=== PATIENT | male | born 1965 ===

== ENCOUNTER 2018-03-11 11:22 | Inpatient (IN) | payer OTHER ==
[2018-03-11] MEDS ORDERED: Sodium Chloride 0.9% 1,000 ML IV STA (12:43)
[2018-03-11 13:23] LABS: BASO % 0.4 % (0.0-2.0); EOS % 0.2 % (0.0-4.0); HEMOGLOBIN 15.5 g/dL (12.0-18.0); LYMPH # 1.3 K/uL (1.0-4.3); LYMPH % 22.2 % (20.0-40.0); MEAN CELL VOLUME 81.4 fl (80.0-94.0); MEAN CORPUSCULAR HEMOGLOBIN 27.1 pg (27.0-31.0); MEAN CORPUSCULAR HGB CONC 33.3 g/dL (33.0-37.0); MEAN PLATELET VOLUME 7.4 fl (7.2-11.7); MONO # 0.3 K/uL (0.0-0.8); MONO % 5.1 % (0.0-10.0); NEUT # 4.1 K/uL (1.8-7.0); NEUT % 72.1 % (50.0-75.0); NRBC % 0.3 % (0.0-0.0); RBC 5.71 Mil/uL (4.40-5.90); RED CELL DISTRIBUTION WIDTH 15.2 % (11.5-14.5); WHITE BLOOD COUNT 5.7 K/uL (4.8-10.8)
[2018-03-11] MEDS ORDERED: Famotidine 40 MG/5 ML PO STA (13:23)
[2018-03-11 13:28] LABS: ALBUMIN 4.8 g/dL (3.5-5.0); ALT/SGPT 47 U/L (21-72); AST/SGOT 65 U/L (17-59); BLOOD UREA NITROGEN 10 mg/dl (9-20); CALCIUM 8.9 mg/dL (8.4-10.2); GFR AFRICAN-AMERICAN > 60; GFR NON-AFRICAN AMERICAN > 60; LIPASE 120 U/L (23-300)
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
[2018-03-11 20:07] LABS: URINE BACTERIA RARE (<OCC); URINE BILIRUBIN NEGATIVE (NEGATIVE); URINE BLOOD NEGATIVE (NEGATIVE); URINE CLARITY SLIGHTY-CLOUDY (Clear); URINE COLOR YELLOW (YELLOW); URINE GLUCOSE (UA) NEG (Normal); URINE HYALINE CAST 0-2 /hpf (0-2); URINE LEUKOCYTE ESTERASE NEG Leu/uL (Negative); URINE PROTEIN 100 mg/dL (NEGATIVE)
[2018-03-11 20:20] LABS: BARBITURATES, UR NEGATIVE (NEGATIVE); BENZODIAZEPINES, UR POSITIVE (NEGATIVE); OPIATES, UR NEGATIVE (NEGATIVE); PHENCYCLIDINE, UR NEGATIVE (NEGATIVE)
[2018-03-11] MEDS ORDERED: Multivitamin (MVI) 10 ML, Thiamine 100 MG, Folic Acid 1 MG in Dextrose 5%/0.45% NS 1,00... IV ONE (22:23)
[2018-03-11] MEDS ORDERED: Thiamine 100 mg/ml Inj IV ONE (22:28)
[2018-03-12] MEDS ORDERED: TRAZODONE HCL PO SCH (09:00)
[2018-03-12] MEDS: Thiamine 100 mg/ml Inj IV SCH (09:21)
[2018-03-12] MEDS: Enoxaparin 40 mg Syringe SC SCH (11:39)
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
--- NOTE | 2018-03-13 04:20 | PN ---
DATE: 03/12/2018 SUBJECTIVE: The patient was seen today on 03/12/2018 and is not on any cardiopulmonary disease but the patient still has tachycardia, and he is having tremors. PHYSICAL EXAMINATION: VITAL SIGNS: Blood pressure 150/92, temperature 98.5, respiratory rate 17, and pulse 104. HEENT: Pupils are equal and reactive to light. Normal appearing mucosa of the conjunctiva, oropharyngeal and nasal membrane mucosa. NECK: Supple. No JVD. No carotid bruits. No lymph node. No thyromegaly. CHEST AND LUNGS: Bilateral symmetrical expansion. Good air exchange. No rales. No rhonchi. CARDIOVASCULAR SYSTEM: PMI not localized. S1 and S2. No additional sounds. ABDOMEN: Normoactive bowel sounds. No tenderness. No organomegaly. No masses. EXTREMITIES: No cyanosis. No clubbing. Moves all extremities equally. ASSESSMENT: 1. Alcohol withdrawal with tremors and agitation. 2. History of alcohol abuse. PLAN: We will continue the Ativan, IV fluid, multivitamin, and thiamine. DT precaution and seizure precaution. Continue current medications as per NOV. Danny Mccallum MD
[2018-03-13] MEDS: Enoxaparin 40 mg Syringe SC SCH (08:55)
[2018-03-13] MEDS: Thiamine 100 mg/ml Inj IV SCH (08:57)
[2018-03-13] MEDS: Oxycodone/Acetaminophen 5/325 mg Tab PO PRN ×3 (10:01→23:20)
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
[2018-03-14] MEDS: Oxycodone/Acetaminophen 5/325 mg Tab PO PRN ×2 (08:47→19:08)
[2018-03-14] MEDS: Enoxaparin 40 mg Syringe SC SCH (08:48)
[2018-03-14] MEDS: Thiamine 100 mg/ml Inj IV SCH (08:50)
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
[2018-03-15] MEDS: Oxycodone/Acetaminophen 5/325 mg Tab PO PRN ×5 (00:29→20:52)
--- NOTE | 2018-03-15 00:36 | PN ---
DATE: 03/14/2018 SUBJECTIVE: The patient is seen today 03/14/2018. He is not in any pulmonary cardiopulmonary distress, and the patient was not in need for Ativan every 2 hours. The patient also has poor IV access. PHYSICAL EXAMINATION: VITAL SIGNS: Blood pressure 136/85, temperature 98.8, respiratory rate 18, and pulse 82. HEENT: Pupils equal and reactive to light. Normal appearing mucosa of the conjunctiva, oropharyngeal, and nasal membrane mucosa. NECK: Supple. No JVD. No carotid bruits. No lymph nodes. No thyromegaly. CHEST AND LUNGS: Bilateral symmetrical expansion. Good air exchange. No rales. No rhonchi. CARDIOVASCULAR: PMI not localized. S1 and S2. No additional sounds. ABDOMEN: Normoactive bowel sounds. No tenderness. No organomegaly. No masses. EXTREMITIES: No cyanosis. No clubbing. No edema. COMMISSION SPECIALIST: Alert, awake, and oriented x2; , .: 1. Alcohol withdrawal with impending delirium tremens. 2. History of alcohol abuse. PLAN: Continue current medications and change Ativan to every 4 hours and continue one-to-one observation. Danny Mccallum MD [facility]
[2018-03-15] MEDS: Enoxaparin 40 mg Syringe SC SCH (09:15)
[2018-03-15] MEDS: Thiamine 100 mg/ml Inj IV SCH (09:15)
[2018-03-15] MEDS: Bacitracin OINT 15GM TOP SCH (16:33)
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
[2018-03-15 18:23] LABS: BASO % 0.3 % (0.0-2.0); EOS # 0.1 K/uL (0.0-0.7); EOS % 1.7 % (0.0-4.0); HEMOGLOBIN 13.8 g/dL (12.0-18.0); LYMPH # 1.1 K/uL (1.0-4.3); LYMPH % 24.3 % (20.0-40.0); MEAN CELL VOLUME 81.8 fl (80.0-94.0); MEAN CORPUSCULAR HEMOGLOBIN 27.2 pg (27.0-31.0); MEAN CORPUSCULAR HGB CONC 33.2 g/dL (33.0-37.0); MEAN PLATELET VOLUME 7.9 fl (7.2-11.7); MONO # 0.5 K/uL (0.0-0.8); MONO % 10.7 % (0.0-10.0); NEUT # 2.9 K/uL (1.8-7.0); NRBC % 0.1 % (0.0-0.0); RBC 5.1 Mil/uL (4.40-5.90); RED CELL DISTRIBUTION WIDTH 15.5 % (11.5-14.5); WHITE BLOOD COUNT 4.6 K/uL (4.8-10.8)
[2018-03-15 18:52] LABS: BLOOD UREA NITROGEN 15 mg/dl (9-20); CALCIUM 9.2 mg/dL (8.4-10.2); GFR AFRICAN-AMERICAN > 60; GFR NON-AFRICAN AMERICAN > 60
[2018-03-16] MEDS: Oxycodone/Acetaminophen 5/325 mg Tab PO PRN ×5 (01:10→22:13)
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
--- NOTE | 2018-03-16 08:36 | CP.PCM.PN ---
Subjective - Date & Time of Evaluation Date of Evaluation: 03/16/18 Time of Evaluation: 08:33 - Subjective Subjective: Podiatry progress note for attending, Dr. Chang, 52 y/o male seen and evaluated at bedside. Patient is resting comfortably and in NAD. Patient dressing was clean, dry and intact. Patient states he did not receive the x-rays yesterday. Patient still complains of pain and states he is unable to ambulate with the left foot. Patient denies N/F/V/SOB/chills Objective - Vital Signs/Intake and Output Vital Signs (last 24 hours): Temp Pulse Resp BP Pulse Ox 98.2 F 71 20 116/81 97 03/16/18 08:00 03/16/18 08:00 03/16/18 08:00 03/16/18 08:00 03/16/18 08:00 - Medications Medications: Current Medications Bacitracin (Bacitracin Oint) 1 applic TOP BID [facility] Last Admin: 03/15/18 16:33 Dose: 1 applic Collagenase (Santyl) 1 applic TOP DAILY [facility] Famotidine (Pepcid) 20 mg PO BID [facility] Last Admin: 03/15/18 16:33 Dose: 20 mg Fluoxetine HCl (Prozac) 20 mg PO DAILY [facility] Last Admin: 03/15/18 09:15 Dose: 20 mg Gabapentin (Neurontin) 100 mg PO BID PRN PRN Reason: Pain, Mild (1-3) Last Admin: 03/15/18 16:33 Dose: 100 mg Lorazepam (Ativan) 2 mg PO Q1 PRN PRN Reason: Agitation Lorazepam (Ativan) 2 mg PO Q4 [facility] Last Admin: 03/16/18 06:01 Dose: 2 mg Ondansetron HCl (Zofran Inj) 4 mg IVP Q6 PRN PRN Reason: Nausea/Vomiting Oxycodone/Acetaminophen (Percocet 5/325 Mg Tab) 1 tab PO Q4 PRN PRN Reason: Pain, moderate (4-7) Stop: 03/16/18 09:52 Last Admin: 03/16/18 06:01 Dose: 1 tab Prazosin HCl (Minipress) 1 mg PO DAILY [facility] Last Admin: 03/15/18 09:15 Dose: 1 mg Thiamine HCl (Vitamin B1 Inj) 100 mg IV DAILY [facility] Last Admin: 03/15/18 09:15 Dose: 100 mg Trazodone HCl (Desyrel) 150 mg PO HS [facility] Last Admin: 03/15/18 22:48 Dose: 150 mg - Labs Labs: 03/15/18 17:25 03/15/18 17:25 - Constitutional Appears: Well, Non-toxic, No Acute Distress - Head Exam Head Exam: ATRAUMATIC, NORMOCEPHALIC - Extremities Exam Additional comments: Bilateral Lower Extremity Exam: VASC: DP and PT 2/4 bilaterally, CFT less than 3 seconds X 10, TG warm to cool proximal to distal, non-pitting edema present to the lateral aspect of the left leg at the lateral malleolus NEURO: Epicritic and Protective sensation intact DERM: Left Lateral malleolar circular superficial wound measuring 1 cm X 1 cm, 80% fibrotic, 20% granular, no malodor, no fluctuance, no tunneling, no probe to bone, no tracking or undermining, no drainage, hyper-granular epithelialized periwound skin, mild increase in temperature noted to the left ankle MSK: severe diffuse pain on palpation to the lateral ankle, patient guarding with range of motion, patient unable to wiggle toes - Neurological Exam Neurological Exam: Alert, Awake, Oriented x3 - Psychiatric Exam Psychiatric exam: Normal Affect, Normal Mood Assessment and Plan - Assessment and Plan (Free Text) Assessment: 52 y/o male seen and evaluated for superficial wound and pain to left lateral ankle Plan: Patient seen and evaluated Plan discussed with attending Dr. Chang Chart, labs and vitals reviewed- Afebrile, absent leukocytosis Foot and Ankle x-rays of the Left Lower Extremity- Pending results Wound Culture- Pending results Wound dressed with DSD and JEFF Podiatry will continue to follow patient while in [place] -Debbie Mccoy, PGY1
[2018-03-16] MEDS: Bacitracin OINT 15GM TOP SCH (10:11)
[2018-03-16] MEDS: Thiamine 100 mg/ml Inj IV SCH (10:13)
[2018-03-16] MEDS: Santyl Collagenase OINTMENT TOP SCH (12:22)
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
[2018-03-16] MEDS: Enoxaparin 40 mg Syringe SC SCH (13:02)
[2018-03-16] MEDS ORDERED: Lidocaine 2% Jelly (Uro-Jet) TOP ONE (14:03)
[2018-03-16] MEDS ORDERED: Lidocaine 2% GEL TOP ONE (14:30)
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
[2018-03-17] MEDS: Oxycodone/Acetaminophen 5/325 mg Tab PO PRN ×3 (02:41→20:19)
--- NOTE | 2018-03-17 09:20 | CP.PCM.PN ---
Subjective - Date & Time of Evaluation Date of Evaluation: 03/17/18 Time of Evaluation: 09:18 - Subjective Subjective: Podiatry progress note for attending, Dr. Chang, 52 y/o male seen and evaluated at bedside. Patient is resting comfortably and in NAD. Patient dressing was clean, dry and intact. Patient states his pain has mildly improved. Patient denies N/F/V/SOB/chills Objective - Vital Signs/Intake and Output Vital Signs (last 24 hours): Temp Pulse Resp BP Pulse Ox 98.2 F 70 18 130/84 99 03/17/18 08:00 03/17/18 08:00 03/17/18 08:00 03/17/18 08:00 03/17/18 08:00 - Medications Medications: Current Medications Collagenase (Santyl) 1 applic TOP DAILY [facility] Last Admin: 03/16/18 12:22 Dose: 1 applic Enoxaparin Sodium (Lovenox) 40 mg SC DAILY [facility] PRN Reason: Protocol Last Admin: 03/16/18 13:02 Dose: 40 mg Famotidine (Pepcid) 20 mg PO BID [facility] Last Admin: 03/16/18 18:14 Dose: 20 mg Fluoxetine HCl (Prozac) 20 mg PO DAILY [facility] Last Admin: 03/16/18 10:13 Dose: 20 mg Gabapentin (Neurontin) 100 mg PO BID PRN PRN Reason: Pain, Mild (1-3) Last Admin: 03/16/18 14:19 Dose: 100 mg Lorazepam (Ativan) 2 mg PO Q1 PRN PRN Reason: Agitation Lorazepam (Ativan) 2 mg PO Q4 [facility] Last Admin: 03/17/18 05:12 Dose: 2 mg Ondansetron HCl (Zofran Inj) 4 mg IVP Q6 PRN PRN Reason: Nausea/Vomiting Oxycodone/Acetaminophen (Percocet 5/325 Mg Tab) 1 tab PO Q4 PRN PRN Reason: Pain, moderate (4-7) Stop: 03/19/18 12:48 Last Admin: 03/17/18 02:41 Dose: 1 tab Prazosin HCl (Minipress) 1 mg PO DAILY [facility] Last Admin: 03/16/18 10:12 Dose: 1 mg Thiamine HCl (Vitamin B1 Inj) 100 mg IV DAILY [facility] Last Admin: 03/16/18 10:13 Dose: 100 mg Trazodone HCl (Desyrel) 150 mg PO HS [facility] Last Admin: 03/16/18 21:11 Dose: 150 mg - Labs Labs: 03/15/18 17:25 03/15/18 17:25 - Constitutional Appears: Well, Non-toxic, No Acute Distress - Head Exam Head Exam: ATRAUMATIC, NORMOCEPHALIC - Extremities Exam Additional comments: Left Lower Extremity Exam: VASC: DP and PT 2/4, CFT less than 3 seconds X 5, TG warm to cool proximal to distal, improving non-pitting edema present to the lateral aspect of the left leg at the lateral malleolus NEURO: Epicritic and Protective sensation intact DERM: Left Lateral malleolar circular superficial wound measuring 1 cm X 1 cm, 70% fibrotic, 30% granular, no malodor, no fluctuance, no tunneling, no probe to bone, no tracking or undermining, no drainage, hyper-granular epithelialized periwound skin, minimal increase in temperature noted to the left ankle MSK: mild pain on palpation to the lateral ankle, patient guarding with range of motion - Neurological Exam Neurological Exam: Alert, Awake, Oriented x3 - Psychiatric Exam Psychiatric exam: Normal Affect, Normal Mood Assessment and Plan - Assessment and Plan (Free Text) Assessment: 52 y/o male seen and evaluated for superficial wound and pain to left lateral ankle Plan: Patient seen and evaluated Plan discussed with attending Dr. Chang Chart, labs and vitals reviewed- Afebrile, absent leukocytosis Foot and Ankle x-rays of the Left Lower Extremity- no fracture or dislocations notes Wound Culture- Pending results Lidocaine Gel applied to the left malleolus for pain Wound dressed with Santly, DSD and JEFF Podiatry will continue to follow patient while in house
[2018-03-17] MEDS: Thiamine 100 mg/ml Inj IV SCH (09:41)
[2018-03-17] MEDS: Santyl Collagenase OINTMENT TOP SCH (09:42)
[2018-03-17] MEDS: Enoxaparin 40 mg Syringe SC SCH (09:43)
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
--- NOTE | 2018-03-17 14:30 | CT ---
PROCEDURE: CT HEAD WITHOUT CONTRAST. HISTORY: unsteady gait COMPARISON: None available. TECHNIQUE: Axial computed tomography images were obtained through the head/brain without intravenous contrast. Limited study due to artifact from patient motion. Radiation dose: Total exam DLP = 1264.93 mGy-cm. This CT exam was performed using one or more of the following dose reduction techniques: Automated exposure control, adjustment of the mA and/or kV according to patient size, and/or use of iterative reconstruction technique. FINDINGS: HEMORRHAGE: No acute hemorrhage. BRAIN: There is a curvilinear fluid collection along the inner table the calvarium on the left with maximum dimension of approximately 1.2 centimeters. This demonstrates mild mass effect on the left cerebral hemisphere. There is mild to moderate effacement of the sulcal spaces on the left. No layering high density material seen within this fluid collection to suggest acute hemorrhage. No atrophy or chronic microvascular ischemic changes. VENTRICLES: Mild effacement of the left ventricle. The left temporal horn appears slightly smaller than the right. CALVARIUM: Unremarkable. PARANASAL SINUSES: Unremarkable as visualized. No significant inflammatory changes. MASTOID AIR CELLS: Under pneumatization of the mastoid air cells right greater than left. OTHER FINDINGS: None. IMPRESSION: No CT evidence of acute intracranial hemorrhage or acute territorial infarct. Acute infarction may be CT occult within first 24 hours. If a focal deficit persists, consider followup CT or MRI for further evaluation. Findings consistent with chronic subdural hematoma along the inner table of the left calvarium of [id number] mass effect on the adjacent sulcal spaces and the left ventricle particularly the temporal horn. Other findings as above. Discussed with Dr Burns at approximately 2:20 p.m. on 03/17/2018.
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
--- NOTE | 2018-03-17 17:02 | PN ---
DATE: 03/17/2018 SUBJECTIVE: The patient is seen today 03/17/2018. He is not in any cardiopulmonary distress. PHYSICAL EXAMINATION: VITAL SIGNS: Blood pressure 139/88, temperature 97.8, respiratory rate 20, and pulse 60. HEENT: Pupils equal and reactive to light. Normal-appearing mucosa of the conjunctivae, oropharynx and nasal membrane mucosa. NECK: Supple. No JVD. No carotid bruits. No lymph nodes. No thyromegaly. CHEST AND LUNGS: Bilateral symmetrical expansion. Good air exchange. No rales. No rhonchi. CARDIOVASCULAR SYSTEM: PMI not localized. S1 and S2. No additional sounds. ABDOMEN: Normoactive bowel sounds. No tenderness. No organomegaly. No masses. EXTREMITIES: No cyanosis. No clubbing. No edema. DATABASE PROGRAMMER ANALYST: Alert, awake, and oriented x2, and the patient has tremors in both upper extremities and he is still on Ativan every 4 hours. ASSESSMENT: Alcohol withdrawal with impending delirium tremens. We will consult Neurology for the continued tremors. PLAN: Neurology consult for continuous tremors and unsteadiness and Follow Podiatry regarding the weightbearing and the Physical Therapy regarding the injury to the left ankle. The patient has stage 2 ulcer in the mid thoracic area as that was present on admission. The patient also has a closed wound on the right ankle that is being taken care of by Podiatry. Danny Mccallum MD MTDKwaku
[2018-03-18] MEDS: Oxycodone/Acetaminophen 5/325 mg Tab PO PRN ×4 (00:35→20:25)
[2018-03-18] MEDS ORDERED: Povidone Iodine Topical 10% Sol ONE (08:10)
--- NOTE | 2018-03-18 09:09 | CP.PCM.PN ---
Subjective - Date & Time of Evaluation Date of Evaluation: 03/18/18 Time of Evaluation: 09:07 - Subjective Subjective: Podiatry progress note for attending, Dr. Chang, 52 y/o male seen and evaluated at bedside with Dr. Chang. Patient is resting comfortably and in NAD. Patient's dressing was clean, dry and intact. Patient states his pain has improved, and patient is able to ambulate to and from the bathroom. Patient denies any trauma to his foot. Patient denies any new pedal complaints. Patient denies N/F/V/SOB/chills Objective - Vital Signs/Intake and Output Vital Signs (last 24 hours): Temp Pulse Resp BP Pulse Ox 97.9 F 79 20 133/83 100 03/18/18 08:00 03/18/18 08:00 03/18/18 08:00 03/18/18 08:00 03/18/18 08:00 - Medications Medications: Current Medications Collagenase (Santyl) 1 applic TOP DAILY [facility] Last Admin: 03/17/18 09:42 Dose: 1 applic Enoxaparin Sodium (Lovenox) 40 mg SC DAILY [facility] PRN Reason: Protocol Last Admin: 03/17/18 09:43 Dose: 40 mg Famotidine (Pepcid) 20 mg PO BID [facility] Last Admin: 03/17/18 17:44 Dose: 20 mg Fluoxetine HCl (Prozac) 20 mg PO DAILY [facility] Last Admin: 03/17/18 09:42 Dose: 20 mg Gabapentin (Neurontin) 100 mg PO BID PRN PRN Reason: Pain, Mild (1-3) Last Admin: 03/17/18 17:45 Dose: 100 mg Lorazepam (Ativan) 2 mg PO Q1 PRN PRN Reason: Agitation Lorazepam (Ativan) 2 mg PO Q4 [facility] Last Admin: 03/18/18 04:46 Dose: 2 mg Ondansetron HCl (Zofran Inj) 4 mg IVP Q6 PRN PRN Reason: Nausea/Vomiting Oxycodone/Acetaminophen (Percocet 5/325 Mg Tab) 1 tab PO Q4 PRN PRN Reason: Pain, moderate (4-7) Stop: 03/19/18 12:48 Last Admin: 03/18/18 00:35 Dose: 1 tab Prazosin HCl (Minipress) 1 mg PO DAILY [facility] Last Admin: 03/17/18 09:43 Dose: 1 mg Thiamine HCl (Vitamin B1 Inj) 100 mg IV DAILY [facility] Last Admin: 03/17/18 09:41 Dose: 100 mg Trazodone HCl (Desyrel) 150 mg PO HS [facility] Last Admin: 03/17/18 21:52 Dose: 150 mg - Labs Labs: 03/15/18 17:25 03/15/18 17:25 - Constitutional Appears: Well, Non-toxic, No Acute Distress - Head Exam Head Exam: ATRAUMATIC, NORMOCEPHALIC - Extremities Exam Additional comments: Left Lower Extremity Exam: VASC: DP and PT 2/4, CFT less than 3 seconds X 5, TG warm to cool proximal to distal, improving non-pitting edema present to the lateral aspect of the left leg at the lateral malleolus NEURO: Epicritic and Protective sensation intact DERM: Left Lateral malleolar circular superficial wound measuring 1 cm X 1 cm, 100% granular, no malodor, no fluctuance, no tunneling, no probe to bone, no tracking or undermining, no drainage, hyper-granular epithelialized periwound skin, minimal increase in temperature noted to the left ankle MSK: mild pain on palpation to the lateral ankle, patient able to perform range of motion exercises, however guarding due to pain - Neurological Exam Neurological Exam: Awake, Oriented x3 - Psychiatric Exam Psychiatric exam: Normal Affect, Normal Mood Assessment and Plan - Assessment and Plan (Free Text) Assessment: 52 y/o male seen and evaluated for superficial wound and pain to left lateral ankle Plan: Patient seen and evaluated with Dr. Chang Chart, labs and vitals reviewed- Afebrile, absent leukocytosis Foot and Ankle x-rays of the Left Lower Extremity- no fracture or dislocations notes Wound Culture- Coagulase Neg Staph Lidocaine Gel applied to the left malleolus for pain Wound dressed with Caro, DSKwaku and JEFF Podiatry will continue to follow patient while in house
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
[2018-03-18] MEDS: Enoxaparin 40 mg Syringe SC SCH (09:55)
[2018-03-18] MEDS: Thiamine 100 mg/ml Inj IV SCH (09:58)
[2018-03-18] MEDS: Santyl Collagenase OINTMENT TOP SCH (09:59)
--- NOTE | 2018-03-18 14:53 | PQF ---
PROVIDER RESPONSE TEXT: Thoracolumbar area, POA REVIEWER QUERY TEXT: Skin Ulcer Location and POA Status Skin ulcer pressure related stage 2 to the mid lower back is noted in the Medical Record by the photographer lithographic. Please specify the location and whether it was present on admission (POA )and the etiology of the ski n ulcer Location such as: -- Body site(s) involved -- Laterality (left, right, bilateral) -- Type/ Etiology of Ulcer -- Other, please specify The patient's Clinical Indicators include: The photographer lithographic has the following documentation on 03/12/18: "Asked to assess patient who presents to unit with Stage 2 pressure ulcer to mid lower back; per edith ent, he has been lying in bed for long periods of time due to depression. Recommending to apply hydro gel then cover with foam dressing to be done every other day." Query created by: Suzanne Purvis on 03/16/2018 6:57 AM Electronically signed by: Danny Mccallum MD 03/18/2018 2:50 PM
--- NOTE | 2018-03-18 15:31 | CP.PCM.PCO ---
Assessment & Plan - Assessment and Plan (Free Text) Assessment: Patient seen and examined VSS alert awake oriented less tremulous. Walking with physical therapy with rolling walker Patient seen by Neuro and Neurosurgery -as per Dr Parker, patient will need repeat head ct scan in 2 weeks. Stable for transfer to psych unit. Discussed with Dr Mccallum who agrees with plan. GI Arndt aware to make the transfer.
[2018-03-18 16:22] VITALS: RESP 16
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
[2018-03-18 20:10] VITALS: BP 132/77; PULSE 81; TEMP 97.9; O2SAT 98
--- NOTE | 2018-03-19 08:32 | CON ---
DATE: 03/18/2018 HISTORY OF PRESENT ILLNESS: This is a 52-year-old male who was admitted on 03/11/2018 with a history of alcohol abuse, came in complaining of abdominal pain and problem with left ankle and foot. He has significant problem with alcohol drinks at least one to two pints a day. He currently is going through delirium tremors, and he is actively asked to go to Psych and alcohol detox. Because of his prolonged tremors, a CT of the head was ordered. It demonstrated a small left convexity subdural hematoma, very chronic in nature. No apparent acute blood to my review. No shift . There is some mild mass effect on the cortex, however. At this point, he is fully awake, alert, oriented. I reviewed his medical history with him including family history, social history, review of systems. ALLERGIES: HE HAS NO ALLERGIES. MEDICATIONS: Listed on the chart. PHYSICAL EXAMINATION: GENERAL: He is currently again fully awake, alert, and oriented. HEENT: Pupils are equal. EOMs full. His face is symmetric. His tongue is midline. He has gag. He has corneals. NEUROLOGIC: He has excellent strength in all muscle groups. He does have tremors both at rest and on activity in both upper extremities. He has normal sensation. Normal reflexes. I did not get . He is wearing a look likes some sort of soft cast on his left foot. ASSESSMENT AND PLAN: At this time, the subdural was relatively small. It is at the margin of what would be reasonable to drain. We discussed the alternatives of taking to the operating room and draining it now or observing it perhaps it will resolve with time. He is very interested in going to detox now, and he wishes not to have since he is intact. In light of that, we will observe him, get a repeat CAT scan in two weeks and compare it. If there are any significant changes, then we will adjust our plan accordingly. He was instructed to follow up with me after his discharge from alcohol detox and Psych. Saman Parker MD
== END 2018-03-18 21:20 | DRG 750 ==
LOC: H.ER 11:22 → H.ERHOLD 17:52 → H.TEL 20:37 → OBSVTOIN 03-13 11:56
PROVIDERS: ADMIT Internal Medicine; ATTEND Internal Medicine
DX: F10.231 Alcohol dependence with withdrawal delirium (principal); L89.102 Pressure ulcer of unspecified part of back, stage 2; F10.221 Alcohol dependence with intoxication delirium; Y90.8 Blood alcohol level of 240 mg/100 ml or more; F43.10 Post-traumatic stress disorder, unspecified; F32.9 Major depressive disorder, single episode, unspecified; S06.5X9S Traumatic subdural hemorrhage with loss of consciousness of unspecified duration, sequela; S99 Other and unspecified injuries of ankle and foot; Z87.828 Personal history of other (healed) physical injury and trauma; V29.9XXS Motorcycle rider (driver) (passenger) injured in unspecified traffic accident, sequela

== ENCOUNTER 2018-03-18 22:09 | Inpatient (IN) | payer MEDICAID ==
[2018-03-18 22:13] VITALS: BMI 27.3
[2018-03-18] MEDS ORDERED: Magnesium Hydroxide Susp 30 ml UD PO PRN (23:24)
[2018-03-18] MEDS ORDERED: Alum-Mag Hydrox-Simethicone Susp (30 mL) PO PRN (23:24)
[2018-03-18] MEDS ORDERED: DiphenhydrAMINE 50 mg/ml Inj IM PRN (23:24)
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
--- NOTE | 2018-03-19 07:04 | CP.PCM.PN ---
Subjective - Date & Time of Evaluation Date of Evaluation: 03/19/18 Time of Evaluation: 07:02 - Subjective Subjective: Podiatry progress note for attending, Dr. Chang, Patient seen and evaluated bedside in the Psych unit. Patient states he is feeling much better, and is resting comfortably in bed. Patient denies any new complaints. Patient dressing clean, dry and intact. Patient denies F/V/N/SOB. Objective - Vital Signs/Intake and Output Vital Signs (last 24 hours): Temp Pulse Resp BP Pulse Ox 98.2 F 73 18 115/75 03/19/18 06:00 03/19/18 06:00 03/19/18 06:00 03/19/18 06:00 - Medications Medications: Current Medications Acetaminophen (Tylenol 325mg Tab) 650 mg PO Q4 PRN PRN Reason: Pain, moderate (4-7) Al Hydrox/Mg Hydrox/Simethicone (Maalox Plus 30 Ml) 30 ml PO Q4 PRN PRN Reason: Dyspepsia Diphenhydramine HCl (Benadryl) 50 mg IM Q6 PRN PRN Reason: Extrapyramidal S/S Unable PO Diphenhydramine HCl (Benadryl) 50 mg PO Q6 PRN PRN Reason: Extrapyramidal Symptoms Diphenhydramine HCl (Benadryl) 50 mg PO HS PRN PRN Reason: Sleep Last Admin: 03/19/18 01:47 Dose: 50 mg Folic Acid (Folic Acid) 1 mg PO DAILY YISEL Haloperidol (Haldol) 5 mg PO Q4 PRN PRN Reason: Agitation Haloperidol Lactate (Haldol) 5 mg IM Q4 PRN PRN Reason: Agitation, Unable to Take PO Lorazepam (Ativan) 1 mg IM Q8 PRN PRN Reason: Anxiety/Agitation,Unable PO Lorazepam (Ativan) 1 mg PO Q8 PRN PRN Reason: Anxiety/Agitation Last Admin: 03/19/18 00:19 Dose: 1 mg Magnesium Hydroxide (Milk Of Magnesia) 30 ml PO HS PRN PRN Reason: Constipation Multivitamins/Minerals (Therapeutic-M Tab) 1 tab PO DAILY YISEL Thiamine HCl (Vitamin B1 Tab) 100 mg PO DAILY YISEL - Constitutional Appears: Well, Non-toxic, No Acute Distress - Head Exam Head Exam: ATRAUMATIC, NORMOCEPHALIC - Extremities Exam Additional comments: Left Lower Extremity Exam VASC: DP and PT 2/4, CFT less than 3 seconds X 5, TG warm to warm, minimal edema noted to the lateral ankle NEURO: grossly intact DERM: 1 cm X 1 cm ulceration to the lateral malleolus with 100% granular base, healing skin noted gely-wound, no malodor, no drainage, no tunneling, no probe to bone, no tunneling, no tracking, no fluctuance MSK: pain on palpation to the lateral malleolus, pain with ankle joint range of motion - Neurological Exam Neurological Exam: Alert, Awake, Oriented x3 - Psychiatric Exam Psychiatric exam: Normal Affect, Normal Mood Assessment and Plan - Assessment and Plan (Free Text) Assessment: 52 y/o male seen and evaluted for ulceration to left lateral malleolus Plan: Patient seen and evaluated at bedside Plan discussed with attending, Dr. Chang Chart, labs and vitals reviewed Wound dressed with DSD, Lidocaine will be ordered for patient Patient is stable from podiatry standpoint Podiatry will continue to follow patient while in house
[2018-03-19] MEDS: Multivitamin With Minerals Tab PO SCH (08:48)
[2018-03-19] MEDS ORDERED: Lidocaine 2% GEL TOP ONE (09:10)
[2018-03-19] MEDS ORDERED: Oxycodone/Acetaminophen 5/325 mg Tab PO SCH (09:15)
[2018-03-19 09:16] LABS: BASO % 0.5 % (0.0-2.0); EOS # 0.1 K/uL (0.0-0.7); EOS % 2.5 % (0.0-4.0); HEMOGLOBIN 13.5 g/dL (12.0-18.0); LYMPH # 1.9 K/uL (1.0-4.3); LYMPH % 32.9 % (20.0-40.0); MEAN CELL VOLUME 82.6 fl (80.0-94.0); MEAN CORPUSCULAR HEMOGLOBIN 27.6 pg (27.0-31.0); MEAN CORPUSCULAR HGB CONC 33.4 g/dL (33.0-37.0); MEAN PLATELET VOLUME 7.6 fl (7.2-11.7); MONO # 0.9 K/uL (0.0-0.8); NEUT # 2.9 K/uL (1.8-7.0); NEUT % 49.1 % (50.0-75.0); NRBC % 0.9 % (0.0-0.0); RBC 4.88 Mil/uL (4.40-5.90); RED CELL DISTRIBUTION WIDTH 15.6 % (11.5-14.5); WHITE BLOOD COUNT 5.8 K/uL (4.8-10.8)
[2018-03-19 09:55] LABS: LDL CHOLESTEROL 61 mg/dL (0-129)
[2018-03-19 09:59] LABS: ALB/GLOB RATIO 1.2 (1.0-2.1); ALBUMIN 4.3 g/dL (3.5-5.0); ALT/SGPT 45 U/L (21-72); AST/SGOT 34 U/L (17-59); BILIRUBIN,DIRECT 0.3 mg/ml (0.0-0.4); BLOOD UREA NITROGEN 11 mg/dl (9-20); CALCIUM 9.2 mg/dL (8.4-10.2); GFR AFRICAN-AMERICAN > 60; GFR NON-AFRICAN AMERICAN > 60; HDL CHOLESTEROL 35 MG/DL (30-70); T4 11.1 ug/dl (5.5-11.0)
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
[2018-03-19] MEDS: Oxycodone/Acetaminophen 5/325 mg Tab PO SCH ×2 (16:08→21:20)
[2018-03-20] MEDS: Oxycodone/Acetaminophen 5/325 mg Tab PO SCH ×2 (04:32→10:10)
[2018-03-20] MEDS: Multivitamin With Minerals Tab PO SCH (08:10)
--- NOTE | 2018-03-20 09:31 | PCM.PYCHPN ---
Psychiatric Progress Note - Psychiatric Progress Note Patient seen today, length of contact: Patient evaluated, case discussed with team, chart reviewed Patient Chief Complaint: "I'm depressed." Problems Identified/Issues Discussed: Patient continues to report feeling depressed and anxious. He states that he has difficulty sleeping at night. He does not want to take Trazodone anymore because he does not believe it is effective. We discussed stopping Trazodone and starting Remeron 15 mg PO HS. No AH/VH/SI/HI. Medication Change: Yes (Stop Trazodone, Start Remeron 15 mg PO HS) Medical Record Reviewed: Yes Consults ordered or reviewed: Medicine consult, PT Mental Status Examination - Cognitive Function Orientation: Person, Place, Situation, Time Memory: Intact Attention: WNL Concentration: WNL Association: WNL Fund of Knowledge: WN Decription of patient's judgement and insights: Improving I/J - Mood Mood: Depressed - Affect Affect: Constricted, Depressed - Speech Speech: Appropriate - Formal Thought Process Formal Thought Process: No Impairment Psychotic Thoughts and Behaviors: NO AH/VH/paranoia/delusions - Suicidal Ideation Suicidal Ideation: No - Homicidal Ideation Homicidal Ideation: No Goal/Treatment Plan - Goal/Treatment Plan Need for Continued Stay: Remain at risks for inpatient hospitalization, Severe depression anxiety, Discharge may exacerbated symptoms Progress Toward Problem(s) and Goals/Treatment Plan: Major Depressive Disorder, Alcohol Use Disorder, PTSD -Individual and group therapy -Continue Prozac 40 mg PO Daily -Stop Trazodone, start Remeron 15 mg PO HS -Continue Prazosin 1 mg PO HS -Medicine consult -Disposition planning Estimated Date of D/C: 03/24/18
--- NOTE | 2018-03-20 12:30 | CP.PCM.PN ---
Subjective - Date & Time of Evaluation Date of Evaluation: 03/20/18 Time of Evaluation: 12:28 - Subjective Subjective: Podiatry progress note for attending, Dr. Chang, Patient seen and evaluated at the bedside in the Psych unit. Patient is AAO X 3 and not in acute distress. Patient is setting in the bed comfortably. Patient states that he has mild pain in his L foot wound. Patient denies any new pedal complaints. Patient dressing clean, dry and intact. Patient denies F/V/N/SOB. Objective - Vital Signs/Intake and Output Vital Signs (last 24 hours): Temp Pulse Resp BP Pulse Ox 98.1 F 69 18 119/74 03/20/18 06:00 03/20/18 06:00 03/20/18 06:00 03/20/18 06:00 - Medications Medications: Current Medications Acetaminophen (Tylenol 325mg Tab) 650 mg PO Q4 PRN PRN Reason: Pain, moderate (4-7) Al Hydrox/Mg Hydrox/Simethicone (Maalox Plus 30 Ml) 30 ml PO Q4 PRN PRN Reason: Dyspepsia Diphenhydramine HCl (Benadryl) 50 mg IM Q6 PRN PRN Reason: Extrapyramidal S/S Unable PO Diphenhydramine HCl (Benadryl) 50 mg PO Q6 PRN PRN Reason: Extrapyramidal Symptoms Famotidine (Pepcid) 20 mg PO BID [facility] Last Admin: 03/20/18 08:11 Dose: 20 mg Fluoxetine HCl (Prozac) 40 mg PO DAILY [facility] Last Admin: 03/20/18 08:10 Dose: 40 mg Folic Acid (Folic Acid) 1 mg PO DAILY [facility] Last Admin: 03/20/18 08:11 Dose: 1 mg Gabapentin (Neurontin) 100 mg PO BID [facility] Last Admin: 03/20/18 08:11 Dose: 100 mg Haloperidol (Haldol) 5 mg PO Q4 PRN PRN Reason: Agitation Haloperidol Lactate (Haldol) 5 mg IM Q4 PRN PRN Reason: Agitation, Unable to Take PO Lorazepam (Ativan) 1 mg IM Q8 PRN PRN Reason: Anxiety/Agitation,Unable PO Lorazepam (Ativan) 0.5 mg PO Q8 PRN PRN Reason: Anxiety Last Admin: 03/19/18 19:01 Dose: 0.5 mg Magnesium Hydroxide (Milk Of Magnesia) 30 ml PO HS PRN PRN Reason: Constipation Mirtazapine (Remeron) 15 mg PO [facility] Multivitamins/Minerals (Therapeutic-M Tab) 1 tab PO DAILY [facility] Last Admin: 03/20/18 08:10 Dose: 1 tab Oxycodone/Acetaminophen (Percocet 5/325 Mg Tab) 1 tab PO Q6 [facility] Stop: 03/22/18 16:01 Last Admin: 03/20/18 10:10 Dose: 1 tab Prazosin HCl (Minipress) 1 mg PO HS [facility] Last Admin: 03/19/18 21:20 Dose: 1 mg Sucralfate (Carafate Tab) 1 gm PO QID [facility] Last Admin: 03/20/18 12:04 Dose: Not Given Thiamine HCl (Vitamin B1 Tab) 100 mg PO DAILY [facility] Last Admin: 03/20/18 08:10 Dose: 100 mg - Labs Labs: 03/19/18 08:50 03/19/18 08:50 - Constitutional Appears: Well, Non-toxic, No Acute Distress - Head Exam Head Exam: ATRAUMATIC, NORMOCEPHALIC - Extremities Exam Additional comments: Left Lower Extremity Exam VASC: DP/PT 2/4, Cap refill < 3 seconds in all digits, Temp gradient warm to cool, minimal edema noted to the lateral ankle NEURO: protective sensation grossly intact, gross sensation intact. DERM: 1 cm X 1 cm X 0.2 cm ulceration to the lateral malleolus with 100% granular base, gely-wound skin is healing, no malodor, no drainage, no tunneling , no probe to bone, no tunneling, no tracking, no undermining, no fluctuance. MSK: pain on palpation to the lateral malleolus, pain with ankle joint range of motion - Neurological Exam Neurological Exam: Alert, Awake, Oriented x3 - Psychiatric Exam Psychiatric exam: Normal Affect, Normal Mood Assessment and Plan - Assessment and Plan (Free Text) Assessment: 52 y/o male seen and evaluted for ulceration to left lateral malleolus Plan: Patient seen and evaluated at bedside Plan discussed in details with attending, Dr. Chang Chart, labs and vitals reviewed. Patient is afebrile Wound dressed with Lidocaine, DSD and norris bandage. Patient is stable from podiatry standpoint. Podiatry will continue to follow patient while in house
[2018-03-20] MEDS: Oxycodone/Acetaminophen 5/325 mg Tab PO PRN ×2 (16:09→22:26)
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
[2018-03-21 05:57] VITALS: TEMP 98.1
--- NOTE | 2018-03-21 07:35 | PCM.PYCHPN ---
Psychiatric Progress Note - Psychiatric Progress Note Patient seen today, length of contact: Patient evaluated, case discussed with team, chart reviewed Patient Chief Complaint: "I'm depressed." Problems Identified/Issues Discussed: Patient continues to report feeling severely depressed and anxious. He continues to have poor sleep at night. No AH/VH/SI/HI. Medication Change: No Medical Record Reviewed: Yes Consults ordered or reviewed: Medicine consult, PT Mental Status Examination - Cognitive Function Orientation: Person, Place, Situation, Time Memory: Intact Attention: WNL Concentration: WNL Association: WNL Fund of Knowledge: [facility] Decription of patient's judgement and insights: Improving I/J - Mood Mood: Depressed - Affect Affect: Constricted, Depressed - Speech Speech: Appropriate - Formal Thought Process Formal Thought Process: No Impairment Psychotic Thoughts and Behaviors: NO AH/VH/paranoia/delusions - Suicidal Ideation Suicidal Ideation: No - Homicidal Ideation Homicidal Ideation: No Goal/Treatment Plan - Goal/Treatment Plan Need for Continued Stay: Remain at risks for inpatient hospitalization, Severe depression anxiety, Discharge may exacerbated symptoms Progress Toward Problem(s) and Goals/Treatment Plan: Major Depressive Disorder, Alcohol Use Disorder, PTSD -Individual and group therapy -Continue Prozac 40 mg PO Daily -Continue Remeron 15 mg PO HS -Continue Prazosin 1 mg PO HS -Medicine consult -Disposition planning Estimated Date of D/C: 03/25/18
[2018-03-21] MEDS: Multivitamin With Minerals Tab PO SCH (08:29)
[2018-03-21] MEDS: Oxycodone/Acetaminophen 5/325 mg Tab PO PRN ×2 (08:31→14:29)
[2018-03-21 16:05] VITALS: BP 121/74; PULSE 79; RESP 20
--- NOTE | 2018-03-21 19:04 | PCM.RRT ---
LAB INSTRUCTOR Nurse Assessment - Situation LAB INSTRUCTOR Responder Arrival Time: 18:30 LAB INSTRUCTOR Reason for Call: Change in Mental Status LAB INSTRUCTOR Called By: RN - IV IV Inserted during LAB INSTRUCTOR?: No I.Reason for LAB INSTRUCTOR - A) Acute Change in Patient: Subjective: LAB INSTRUCTOR was called by RN for a 52 y/o male with PMHx of Depression, PTSD, Alcohol abuse admitted in Psychiatric unit for worsening depression in the context of alcohol abuse. As per nurse report, patient was watching TV, when he started having a seizure episode, first witnessed for another patient, who called nurse , who also witnessed a possible generalized tonic-clonic seizure episode. Patient was brought down to the floor by Psych unit staff, and head was protected with a pillow. On arrival patient was not seizing, but confused, open eyes, and not answering question. Possible postictal state. NO evidence of chest pain, respiratory distress, bladder or bowel incontinence. Unclear tongue bite, patient had trace of reddish secretion in his teeth resembling blood. - Neurological Status (Select all that apply): Confused - Respiratory Oxygen Delivery Method: Nasal Cannula @L/min - Constitutional Appears: Non-toxic, No Acute Distress, Confused - Eyes Eye Exam: Normal appearance. absent: Conjunctival injection - Respiratory Exam Respiratory Exam: Clear to Ausculation Bilateral, NORMAL BREATHING PATTERN. absent: Chest Wall Tenderness, Rales, Rhonchi, Wheezes, Respiratory Distress - Cardiovascular Exam Cardiovascular Exam: REGULAR RHYTHM, +S1, +S2 - GI/Abdominal Exam GI & Abdominal Exam: Soft, Normal Bowel Sounds. absent: Distended, Guarding, Tenderness - Neurological Exam Neurological Exam: Awake. absent: Oriented x3 - Extremities Exam Extremities Exam: absent: Calf Tenderness, Pedal Edema Plan - Assessment of Findings&Treatment Plan 52 y/o male with h/o alcohol abuse in postictal state most likely after a alcohol withdrawal like seizure episode. PLan: VS stable on arrival, WNL, 97 % oxygen sat -no medication given, because no evidence of seizure on arrival -patient started being more oriented, and alert. -will be transfer to ER for further evaluation -c/w with LAB INSTRUCTOR leader Dr. Patterson
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
== END 2018-03-21 18:45 | disposition short-term general hospital (02) | DRG 426 ==
LOC: H.STEP 22:13
PROVIDERS: ADMIT Psychiatry & Neurology Psychiatry; ATTEND Psychiatry & Neurology Psychiatry
PROC: GZHZZZZ Group Psychotherapy (ICD-10-PCS; principal; 2018-03-18)
PROC: GZ58ZZZ Individual Psychotherapy, Cognitive-Behavioral (ICD-10-PCS; 2018-03-18)
DX: F32.9 Major depressive disorder, single episode, unspecified (principal); L89.109 Pressure ulcer of unspecified part of back, unspecified stage; F10.239 Alcohol dependence with withdrawal, unspecified; R56.9 Unspecified convulsions; F43.10 Post-traumatic stress disorder, unspecified; Z87.828 Personal history of other (healed) physical injury and trauma

== ENCOUNTER 2018-03-21 19:14 | Inpatient (IN) | payer MEDICAID, OTHER ==
[2018-03-21 19:14] VITALS: BMI 27.3
[2018-03-21] MEDS ORDERED: Sodium Chloride 0.9% 1,000 ML IV STA (19:42)
[2018-03-21 20:02] LABS: BASO % 0.3 % (0.0-2.0); EOS % 0.3 % (0.0-4.0); HEMOGLOBIN 13.2 g/dL (12.0-18.0); LYMPH # 0.8 K/uL (1.0-4.3); LYMPH % 13.7 % (20.0-40.0); MEAN CELL VOLUME 82.9 fl (80.0-94.0); MEAN CORPUSCULAR HEMOGLOBIN 27.4 pg (27.0-31.0); MEAN PLATELET VOLUME 7.1 fl (7.2-11.7); MONO # 0.6 K/uL (0.0-0.8); MONO % 10.4 % (0.0-10.0); NEUT # 4.7 K/uL (1.8-7.0); NEUT % 75.3 % (50.0-75.0); RBC 4.84 Mil/uL (4.40-5.90); RED CELL DISTRIBUTION WIDTH 16.4 % (11.5-14.5); WHITE BLOOD COUNT 6.2 K/uL (4.8-10.8)
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
[2018-03-21 20:18] LABS: INR 1.3 (0.9-1.2)
[2018-03-21 20:20] LABS: ALB/GLOB RATIO 1.2 (1.0-2.1); ALBUMIN 4.7 g/dL (3.5-5.0); ALT/SGPT 42 U/L (21-72); AST/SGOT 44 U/L (17-59); BLOOD UREA NITROGEN 11 mg/dl (9-20); CALCIUM 9.5 mg/dL (8.4-10.2); GFR AFRICAN-AMERICAN > 60; GFR NON-AFRICAN AMERICAN > 60
[2018-03-21 20:26] LABS: PARTIAL THROMBOPLASTIN TIME 22.3 Seconds (25.6-37.1)
--- NOTE | 2018-03-21 20:28 | CT ---
EXAM: CT Head Without Intravenous Contrast EXAM DATE/TIME: 03/21/2018 7:41 PM CLINICAL HISTORY: 52 years old, male; Condition or disease; Convulsions or seizures; Other: Poss seizure TECHNIQUE: Axial computed tomography images of the head/brain without intravenous contrast. All CT scans at this facility use at least one of these dose optimization techniques: automated exposure control; mA and/or kV adjustment per patient size (includes targeted exams where dose is matched to clinical indication); or iterative reconstruction. Coronal and sagittal reformatted images were created and reviewed. COMPARISON: CT - HEAD W/O CONTRAST 2018-03-17 13:33 FINDINGS: Brain: Again noted is left frontotemporal subdural hygroma measuring up to 1 cm in thickness. There has been no significant change since previous exam. Prominent sulci. Patchy hypodensity of the cerebral white matter which are nonspecific but likely secondary to microangiopathic changes. No hemorrhage. Ventricles: The ventricles are prominent secondary to diffuse volume loss/atrophy. Bones/joints: Unremarkable. No acute fracture. Soft tissues: Unremarkable. Sinuses: Unremarkable as visualized. No acute sinusitis. Mastoid air cells: Unremarkable as visualized. No mastoid effusion. IMPRESSION: Again noted is left frontotemporal subdural hygroma measuring up to 1 cm in thickness. There has been no significant change since previous exam. Remainder of findings as described above.
[2018-03-21 21:29] LABS: BARBITURATES, UR NEGATIVE (NEGATIVE); BENZODIAZEPINES, UR NEGATIVE (NEGATIVE); OPIATES, UR NEGATIVE (NEGATIVE); PHENCYCLIDINE, UR NEGATIVE (NEGATIVE)
--- NOTE | 2018-03-22 06:05 | CP.PCM.PN ---
Subjective - Date & Time of Evaluation Date of Evaluation: 03/22/18 Time of Evaluation: 06:03 - Subjective Subjective: Podiatry progress note for attending, Dr. Chang 52 y/o male seen and evaluated at bedside. Patient resting comfortably in bed and in no acute distress. Patient states he is in minimal pain. Patient denies N /F/V/SOB/chills. Objective - Vital Signs/Intake and Output Vital Signs (last 24 hours): Temp Pulse Resp BP Pulse Ox 98.6 F 69 16 105/71 99 03/22/18 04:46 03/22/18 04:46 03/22/18 04:46 03/22/18 04:46 03/22/18 04:46 - Medications Medications: Current Medications Chlordiazepoxide (Librium) 25 mg PO Q4H PRN PRN Reason: Withdrawl Famotidine (Pepcid) 20 mg PO BID [facility] Fluoxetine HCl (Prozac) 20 mg PO DAILY [facility] Folic Acid (Folic Acid) 1 mg PO DAILY [facility] Gabapentin (Neurontin) 100 mg PO BID [facility] Lorazepam (Ativan) 2 mg IVP Q3 PRN PRN Reason: Seizure activity Last Admin: 03/22/18 05:29 Dose: 2 mg Multivitamins/Minerals (Therapeutic-M Tab) 1 tab PO DAILY [facility] Oxycodone/Acetaminophen (Percocet 5/325 Mg Tab) 1 tab PO Q4 PRN PRN Reason: Pain, moderate (4-7) Stop: 03/24/18 23:28 Prazosin HCl (Minipress) 1 mg PO DAILY [facility] Thiamine HCl (Vitamin B1 Tab) 100 mg PO DAILY [facility] Trazodone HCl (Desyrel) 150 mg PO [facility] Last Admin: 03/22/18 00:03 Dose: 150 mg - Labs Labs: 03/21/18 19:48 03/21/18 19:48 PT 14.0 Seconds (9.8-13.1) H 03/21/18 19:48 INR 1.3 (0.9-1.2) H 03/21/18 19:48 APTT 22.3 Seconds (25.6-37.1) L 03/21/18 19:48 - Constitutional Appears: Well, Non-toxic, No Acute Distress - Head Exam Head Exam: ATRAUMATIC, NORMOCEPHALIC - Extremities Exam Additional comments: Left Lower Extremity Exam VASC: DP and PT 2/4 bilaterally, CFT less 3 seconds X 10, TG within normal limits NEURO: grossly intact DERM: 0.5 X 0.5 cm circular ulceration to the left lateral malleolus with 100% granular base, healing wound edges, no malodor, no probe to bone, no clinical signs of infection, no tunneling MSK: pain on palpation to the left lateral malleolus, pain and guarding with left ankle range of motion - Neurological Exam Neurological Exam: Alert, Awake, Oriented x3 - Psychiatric Exam Psychiatric exam: Normal Affect Assessment and Plan - Assessment and Plan (Free Text) Assessment: 52 M seen and evaluated for wound to left lateral malleolus Plan: Patient seen and evaluated at bedside Plan discussed with attending Dr. Chang Chart, labs and vital reviewed- Afebrile, absent leukocytosis Patient was transferred from Psych to the floor due to seizure activity yesterday Patient had a CT 03/21/18- no acute changes from previous CT Patient wound is stable and dressed with DSD Lidocaine will be ordered for the patient Podiatry will continue to follow patient while in house
[2018-03-22] MEDS ORDERED: Lidocaine 2% GEL TOP ONE (06:29)
[2018-03-22] MEDS: Multivitamin With Minerals Tab PO SCH (08:57)
--- NOTE | 2018-03-22 09:29 | CARD ---
APPROVED REPORT EKG Measurement Heart [id number] IL [id number] <Conclusion> Sinus tachycardia Otherwise normal ECG
--- NOTE | 2018-03-22 13:11 | CP.PCM.CON ---
History of Present Illness - History of Present Illness History of Present Illness: is a 52 yr old male with pmh of psychiatric issues, who presents for seizure that happened before arrival. He was admitted for depression and etoh abuse, when he had a spell of confusion with witnessed generalized seizure and postictal state. Daily alcohol consumption is about a six pack of beer daily, with last drink the day prior to hospitalization. 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 PMH: Depression Denies: Diabetes, Hepatitis, HIV, HTN, Chronic Kidney Disease, Seizures, Sexually Transmitted Disease - Surgical History Surgical History: No Surg Hx - Family History Family History: States: Unknown Family Hx - Social History Current smoker - smoking cessation education provided: No Alcohol: > 2 Drinks/Day Drugs: Denies On exam: Normal neurological examination. Past Patient History - Past Medical History & Family History Past Medical History?: Yes - Past Social History Smoking Status: Never Smoked - CARDIAC Hx Cardiac Disorders: No Hx Hypertension: No - PULMONARY Hx Respiratory Disorders: No - NEUROLOGICAL Hx Neurological Disorder: Yes Hx Seizures: Yes - HEENT Hx HEENT Problems: No - RENAL Hx Chronic Kidney Disease: No - ENDOCRINE/METABOLIC Hx Endocrine Disorders: No - HEMATOLOGICAL/ONCOLOGICAL Hx Blood Disorders: No Hx AIDS: No Hx Human Immunodeficiency Virus (HIV): No - INTEGUMENTARY Hx Dermatological Problems: No - MUSCULOSKELETAL/RHEUMATOLOGICAL Hx Musculoskeletal Disorders: Yes Hx Falls: Yes - GASTROINTESTINAL Hx Gastrointestinal Disorders: No - GENITOURINARY/GYNECOLOGICAL Hx Genitourinary Disorders: No Hx Sexually Transmitted Disorders: No - PSYCHIATRIC Hx Psychophysiologic Disorder: Yes Hx Post Traumatic Stress Disorder: Yes Hx Substance Use: Yes (Alcoholism) - SURGICAL HISTORY Hx Surgeries: No - ANESTHESIA Hx Anesthesia: No Hx Anesthesia Reactions: No Meds Allergies/Adverse Reactions: Allergies Allergy/AdvReac Type Severity Reaction Status Date / Time No Known Allergies Allergy Verified 03/11/18 11:26 - Medications Medications: Current Medications Chlordiazepoxide (Librium) 25 mg PO Q4H PRN PRN Reason: Withdrawl Last Admin: 03/22/18 08:57 Dose: 25 mg Famotidine (Pepcid) 20 mg PO BID [facility] Last Admin: 03/22/18 08:57 Dose: 20 mg Fluoxetine HCl (Prozac) 20 mg PO DAILY [facility] Last Admin: 03/22/18 08:57 Dose: 20 mg Folic Acid (Folic Acid) 1 mg PO DAILY [facility] Last Admin: 03/22/18 08:57 Dose: 1 mg Gabapentin (Neurontin) 100 mg PO BID [facility] Last Admin: 03/22/18 08:57 Dose: 100 mg Lorazepam (Ativan) 2 mg IVP Q3 PRN PRN Reason: Seizure activity Last Admin: 03/22/18 10:26 Dose: 2 mg Multivitamins/Minerals (Therapeutic-M Tab) 1 tab PO DAILY [facility] Last Admin: 03/22/18 08:57 Dose: 1 tab Oxycodone/Acetaminophen (Percocet 5/325 Mg Tab) 1 tab PO Q4 PRN PRN Reason: Pain, moderate (4-7) Stop: 03/24/18 23:28 Prazosin HCl (Minipress) 1 mg PO DAILY [facility] Last Admin: 03/22/18 08:57 Dose: 1 mg Thiamine HCl (Vitamin B1 Tab) 100 mg PO DAILY [facility] Last Admin: 03/22/18 08:57 Dose: 100 mg Trazodone HCl (Desyrel) 150 mg PO [facility] Last Admin: 03/22/18 00:03 Dose: 150 mg Results - Vital Signs Recent Vital Signs: Last Vital Signs Temp 97.9 F 03/22/18 12:43 Pulse 66 03/22/18 12:43 Resp 20 03/22/18 12:43 BP 100/61 03/22/18 12:43 Pulse Ox 97 03/22/18 12:43 - Labs Result Diagrams: 03/21/18 19:48 03/21/18 19:48 Labs: Laboratory Results - last 24 hr 03/21/18 03/21/18 03/21/18 19:48 19:48 19:48 WBC 6.2 RBC 4.84 Hgb 13.2 Hct 40.1 MCV 82.9 MCH 27.4 MCHC 33.0 RDW 16.4 H Plt Count 394 D MPV 7.1 L Neut % (Auto) 75.3 H Lymph % (Auto) 13.7 L Nicholas % (Auto) 10.4 H Eos % (Auto) 0.3 Baso % (Auto) 0.3 Neut # (Auto) 4.7 Lymph # (Auto) 0.8 L Nicholas # (Auto) 0.6 Eos # (Auto) 0.0 Baso # (Auto) 0.0 PT INR APTT Sodium 139 Potassium 3.8 Chloride 101 Carbon Dioxide 22 Anion Gap 20 BUN 11 Creatinine 0.8 Est GFR ( Amer) > 60 Est GFR (Non-Af Amer) > 60 Random Glucose 119 H Calcium 9.5 Phosphorus 2.1 L Magnesium 2.2 Total Bilirubin 0.6 AST 44 ALT 42 Alkaline Phosphatase 53 Total Creatine Kinase 37 L Total Protein 8.5 H Albumin 4.7 Globulin 3.8 Albumin/Globulin Ratio 1.2 Urine Opiates Screen Negative Urine Methadone Screen Negative Ur Barbiturates Screen Negative Ur Phencyclidine Scrn Negative Ur Amphetamines Screen Negative U Benzodiazepines Scrn Negative U Oth Cocaine Metabols Negative U Cannabinoids Screen Negative Alcohol, Quantitative < 10 03/21/18 19:48 WBC RBC Hgb Hct MCV MCH MCHC RDW Plt Count MPV Neut % (Auto) Lymph % (Auto) Nicholas % (Auto) Eos % (Auto) Baso % (Auto) Neut # (Auto) Lymph # (Auto) Nicholas # (Auto) Eos # (Auto) Baso # (Auto) PT 14.0 H INR 1.3 H APTT 22.3 L Sodium Potassium Chloride Carbon Dioxide Anion Gap BUN Creatinine Est GFR ( Amer) Est GFR (Non-Af Amer) Random Glucose Calcium Phosphorus Magnesium Total Bilirubin AST ALT Alkaline Phosphatase Total Creatine Kinase Total Protein Albumin Globulin Albumin/Globulin Ratio Urine Opiates Screen Urine Methadone Screen Ur Barbiturates Screen Ur Phencyclidine Scrn Ur Amphetamines Screen U Benzodiazepines Scrn U Oth Cocaine Metabols U Cannabinoids Screen Alcohol, Quantitative - Imaging and Cardiology CT scan - head Status: Image reviewed by me, Report reviewed by me (ct head: shows left frontal subdural hygroma) Assessment & Plan - Assessment and Plan (Free Text) Assessment: 52 yr old male with what appears to be alcohol withdrawal seizure. He states that he has seizures when he stops drinking, usually 1-2 days after and has never been on epilepsy medications. Plan: 1. Monitor for alcohol withdrawal seizure, and no antiepileptic medications 2. EEG when available. Thank you Dr. hendesron Neurohospitalist service.
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
[2018-03-23] MEDS: Multivitamin With Minerals Tab PO SCH (09:14)
--- NOTE | 2018-03-23 09:37 | CP.PCM.PN ---
Subjective - Date & Time of Evaluation Date of Evaluation: 03/23/18 Time of Evaluation: 09:34 - Subjective Subjective: Podiatry progress note for attending, Dr. Chang 52 y/o male seen and evaluated at bedside. Patient resting comfortably in bed and in no acute distress. Patient states he is in minimal pain at the ankle. Dressing is seen to be dry, clean and intact. Patient denies N/F/V/SOB/chills. Objective - Vital Signs/Intake and Output Vital Signs (last 24 hours): Temp Pulse Resp BP Pulse Ox 98.1 F 63 18 105/66 97 03/23/18 08:20 03/23/18 08:20 03/23/18 08:20 03/23/18 08:20 03/23/18 08:20 - Medications Medications: Current Medications Famotidine (Pepcid) 20 mg PO BID [facility] Last Admin: 03/23/18 09:12 Dose: 20 mg Fluoxetine HCl (Prozac) 20 mg PO DAILY [facility] Last Admin: 03/23/18 09:14 Dose: 20 mg Folic Acid (Folic Acid) 1 mg PO DAILY [facility] Last Admin: 03/23/18 09:14 Dose: 1 mg Gabapentin (Neurontin) 100 mg PO BID [facility] Last Admin: 03/23/18 09:13 Dose: 100 mg Lorazepam (Ativan) 2 mg IVP Q3 PRN PRN Reason: Seizure activity Last Admin: 03/23/18 06:17 Dose: 2 mg Lorazepam (Ativan) 1 mg PO Q4 PRN PRN Reason: Symptoms of alcohol withdrawl Multivitamins/Minerals (Therapeutic-M Tab) 1 tab PO DAILY [facility] Last Admin: 03/23/18 09:14 Dose: 1 tab Ondansetron HCl (Zofran Inj) 4 mg IVP Q6 PRN PRN Reason: Nausea/Vomiting Oxycodone/Acetaminophen (Percocet 5/325 Mg Tab) 1 tab PO Q4 PRN PRN Reason: Pain, moderate (4-7) Stop: 03/24/18 23:28 Prazosin HCl (Minipress) 1 mg PO DAILY [facility] Last Admin: 03/23/18 09:13 Dose: 1 mg Thiamine HCl (Vitamin B1 Tab) 100 mg PO DAILY [facility] Last Admin: 03/23/18 09:13 Dose: 100 mg Trazodone HCl (Desyrel) 150 mg PO HS [facility] Last Admin: 03/22/18 21:08 Dose: 150 mg - Labs Labs: 03/21/18 19:48 03/21/18 19:48 PT 14.0 Seconds (9.8-13.1) H 03/21/18 19:48 INR 1.3 (0.9-1.2) H 03/21/18 19:48 APTT 22.3 Seconds (25.6-37.1) L 03/21/18 19:48 - Constitutional Appears: Well, Non-toxic, No Acute Distress - Head Exam Head Exam: ATRAUMATIC, NORMOCEPHALIC - Extremities Exam Additional comments: VASC: DP and PT 2/4 bilaterally, CFT less 3 seconds X 10, TG warm to warm WNL. NEURO: protective sensation grossly intact DERM: improving 0.5 X 0.5 cm circular ulceration to the left lateral malleolus with 100% granular base, healing wound edges, no malodor, no probe to bone, no clinical signs of infection, no tunneling noted. MSK: pain on palpation to the left lateral malleolus, pain and guarding with left ankle range of motion - Neurological Exam Neurological Exam: Alert, Awake, Oriented x3 - Skin Skin Exam: Normal Color Assessment and Plan - Assessment and Plan (Free Text) Assessment: 52 YO M with stable, non-infected left lateral malleolus wound Plan: Patient seen and evaluated at bedside Plan discussed with attending Dr. Chang Chart, labs and vital reviewed- Afebrile, absent leukocytosis Head CT 03/21/18- no acute changes from previous CT Lidocaine applied to the left lateral malleolus Patient wound is stable and dressed with DSD Podiatry plan: Patient stable from podiatric point of view, and will be seen QOD Podiatry will continue to follow patient while in house
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
--- NOTE | 2018-03-23 13:45 | CP.PCM.PCO ---
Assessment/Plan - Assessment/Plan Assessment (Free Text): Patient seen and examined this morning vital signs stable on prn ativan po for alcohol withdrawal EEG done and discussed with Dr Mccarthy- eeg normal, no need for antiepileptics at this time Taper ativan po as needed Pending psych eval - Problems Patient Problems: Problem List (Active/Current) Problem Status Onset Code Alcohol withdrawal seizure Acute F10.239, R56.9 Subdural hematoma Acute S06.5X9A
[2018-03-23] MEDS: Oxycodone/Acetaminophen 5/325 mg Tab PO PRN (19:56)
--- NOTE | 2018-03-23 21:18 | PN ---
DATE: 03/23/2018 DAILY PROGRESS NOTE SUBJECTIVE: The patient is seen today, 03/23/2018. He is not in any cardiopulmonary distress. PHYSICAL EXAMINATION: VITAL SIGNS: Blood pressure is 117/71, temperature 98.1, respiratory rate 16, and pulse 65. HEENT: Pupils equal and reactive to light. Normal-appearing mucosa of the conjunctivae, oropharynx and nasal membrane mucosa. NECK: Supple. No JVD. No carotid bruit. No lymph node. No thyromegaly. CHEST AND LUNGS: Bilateral symmetrical expansion. Good air exchange. No rales. No rhonchi. CARDIOVASCULAR SYSTEM: PMI not localized. S1, S2. No additional sounds. ABDOMEN: Normoactive bowel sounds. No tenderness. No organomegaly. No masses. EXTREMITIES: No cyanosis. No clubbing. No edema. SEO COORDINATOR: Alert, awake, oriented x2. No neurological deficit could be appreciated. ASSESSMENT: 1. Alcohol withdrawal. 2. Seizure. 3. History of alcohol abuse. PLAN: Continue current Ativan and follow Psych recommendations. Seizure precautions. Danny Mccallum MD
[2018-03-24] MEDS: Multivitamin With Minerals Tab PO SCH (09:11)
[2018-03-24] MEDS: Oxycodone/Acetaminophen 5/325 mg Tab PO PRN ×2 (11:12→18:46)
--- NOTE | 2018-03-24 17:17 | CP.PCM.PN ---
Subjective - Date & Time of Evaluation Date of Evaluation: 03/24/18 Time of Evaluation: 17:13 - Subjective Subjective: Podiatry progress note for attending, Dr. Chang 52 y/o male seen and evaluated at bedside along with Dr. Chang. Patient resting comfortably in bed and in no acute distress. Patient states he is in minimal pain. Dressing is seen to be dry, clean and intact. Patient denies N/F/V/SOB/ chills. Objective - Vital Signs/Intake and Output Vital Signs (last 24 hours): Temp Pulse Resp BP Pulse Ox 98.5 F 73 16 119/76 98 03/24/18 16:20 03/24/18 16:20 03/24/18 16:20 03/24/18 16:20 03/24/18 16:20 - Medications Medications: Current Medications Famotidine (Pepcid) 20 mg PO BID [facility] Last Admin: 03/24/18 16:22 Dose: 20 mg Fluoxetine HCl (Prozac) 40 mg PO DAILY [facility] Last Admin: 03/24/18 09:10 Dose: 40 mg Folic Acid (Folic Acid) 1 mg PO DAILY [facility] Last Admin: 03/24/18 09:09 Dose: 1 mg Gabapentin (Neurontin) 100 mg PO BID [facility] Last Admin: 03/24/18 16:20 Dose: 100 mg Lorazepam (Ativan) 2 mg IVP Q3 PRN PRN Reason: Seizure activity Last Admin: 03/23/18 06:17 Dose: 2 mg Lorazepam (Ativan) 1 mg PO Q4 PRN PRN Reason: Symptoms of alcohol withdrawl Last Admin: 03/24/18 16:20 Dose: 1 mg Mirtazapine (Remeron) 15 mg PO HS [facility] Last Admin: 03/23/18 21:41 Dose: 15 mg Multivitamins/Minerals (Therapeutic-M Tab) 1 tab PO DAILY [facility] Last Admin: 03/24/18 09:11 Dose: 1 tab Ondansetron HCl (Zofran Inj) 4 mg IVP Q6 PRN PRN Reason: Nausea/Vomiting Oxycodone/Acetaminophen (Percocet 5/325 Mg Tab) 1 tab PO Q4 PRN PRN Reason: Pain, moderate (4-7) Stop: 03/24/18 23:28 Last Admin: 03/24/18 11:12 Dose: 1 tab Prazosin HCl (Minipress) 1 mg PO HS [facility] Thiamine HCl (Vitamin B1 Tab) 100 mg PO DAILY [facility] Last Admin: 03/24/18 09:11 Dose: 100 mg - Labs Labs: 03/21/18 19:48 03/21/18 19:48 PT 14.0 Seconds (9.8-13.1) H 03/21/18 19:48 INR 1.3 (0.9-1.2) H 03/21/18 19:48 APTT 22.3 Seconds (25.6-37.1) L 03/21/18 19:48 - Constitutional Appears: Well, Non-toxic, No Acute Distress - Head Exam Head Exam: ATRAUMATIC, NORMOCEPHALIC - Extremities Exam Additional comments: Left Lower Extremity Exam: VASC: DP and PT 2/4, CFT less 3 seconds X 10, TG warm to warm, minimal edema noted gely-wound left lateral malleolus NEURO: protective sensation grossly intact DERM: improving 0.5 X 0.5 cm circular ulceration to the left lateral malleolus with 100% granular base, healing wound edges, no malodor, no probe to bone, no clinical signs of infection, no tunneling noted. MSK: minimal pain on palpation to the left lateral malleolus, pain with left ankle range of motion - Neurological Exam Neurological Exam: Alert, Awake, Oriented x3 - Psychiatric Exam Psychiatric exam: Normal Affect - Skin Skin Exam: Normal Color Assessment and Plan - Assessment and Plan (Free Text) Assessment: 52 year/old male with stable, non-infected left lateral malleolus wound Plan: Patient seen and evaluated at bedside with attending Dr. Chang Plan discussed with attending Dr. Chang Chart, labs and vital reviewed- Afebrile, absent leukocytosis Head CT 03/21/18- no acute changes from previous CT Lidocaine applied to the left lateral malleolus Patient wound is stable and dressed with DSD Podiatry plan: Patient stable from podiatric point of view, and will be seen QOD Podiatry will continue to follow patient while in house
--- NOTE | 2018-03-25 08:41 | CP.PCM.PN ---
Subjective - Date & Time of Evaluation Date of Evaluation: 03/25/18 Time of Evaluation: 08:39 - Subjective Subjective: Mr. Otero was seen and examined at the bedside. He remains alert, oriented in all spheres. He denies any headache, involuntary movements, but complains of his left foot pain. He is able to follow simple commands. There was no untoward events overnight. Objective - Vital Signs/Intake and Output Vital Signs (last 24 hours): Temp Pulse Resp BP Pulse Ox 97.5 F L 68 20 129/81 99 03/25/18 08:15 03/25/18 08:15 03/25/18 08:15 03/25/18 08:15 03/25/18 08:15 - Medications Medications: Current Medications Famotidine (Pepcid) 20 mg PO BID [facility] Last Admin: 03/24/18 16:22 Dose: 20 mg Fluoxetine HCl (Prozac) 40 mg PO DAILY [facility] Last Admin: 03/24/18 09:10 Dose: 40 mg Folic Acid (Folic Acid) 1 mg PO DAILY [facility] Last Admin: 03/24/18 09:09 Dose: 1 mg Gabapentin (Neurontin) 100 mg PO BID [facility] Last Admin: 03/24/18 16:20 Dose: 100 mg Lorazepam (Ativan) 1 mg PO Q4 PRN PRN Reason: Symptoms of alcohol withdrawl Last Admin: 03/25/18 05:25 Dose: 1 mg Mirtazapine (Remeron) 15 mg PO HS [facility] Last Admin: 03/24/18 21:35 Dose: 15 mg Multivitamins/Minerals (Therapeutic-M Tab) 1 tab PO DAILY [facility] Last Admin: 03/24/18 09:11 Dose: 1 tab Ondansetron HCl (Zofran Inj) 4 mg IVP Q6 PRN PRN Reason: Nausea/Vomiting Prazosin HCl (Minipress) 1 mg PO HS [facility] Last Admin: 03/24/18 21:35 Dose: 1 mg Thiamine HCl (Vitamin B1 Tab) 100 mg PO DAILY [facility] Last Admin: 03/24/18 09:11 Dose: 100 mg - Labs Labs: 03/21/18 19:48 03/21/18 19:48 PT 14.0 Seconds (9.8-13.1) H 03/21/18 19:48 INR 1.3 (0.9-1.2) H 03/21/18 19:48 APTT 22.3 Seconds (25.6-37.1) L 03/21/18 19:48 - Constitutional Appears: No Acute Distress - Head Exam Head Exam: NORMAL INSPECTION - Eye Exam Pupil Exam: PERRL - Neurological Exam Neurological Exam: Alert, Awake, Oriented x3 Neuro motor strength exam: Left Upper Extremity: 5, Right Upper Extremity: 5, Left Lower Extremity: 4, Right Lower Extremity: 5 Additional comments: alert, oriented, follows all commands, sensation is intact. Assessment and Plan (1) Alcohol withdrawal seizure Assessment & Plan: Continue all current medical regimen. Pending EEG result. Recommend hydration, treat any electrolyte abnormalities. Status: Acute
[2018-03-25] MEDS: Oxycodone/Acetaminophen 5/325 mg Tab PO PRN ×3 (11:28→21:11)
[2018-03-25] MEDS: Multivitamin With Minerals Tab PO SCH (11:31)
--- NOTE | 2018-03-25 14:31 | CP.PCM.PN ---
Subjective - Date & Time of Evaluation Date of Evaluation: 03/25/18 Time of Evaluation: 14:00 - Subjective Subjective: Patient was seen and examined at the bedside. He has no new complaints today. He is concerned about having a recurrent seizure. He is alert, oriented, and conversant. No acute events or further seizure activity overnight. Objective - Vital Signs/Intake and Output Vital Signs (last 24 hours): Temp Pulse Resp BP Pulse Ox 98.0 F 76 20 118/83 98 03/25/18 12:19 03/25/18 12:19 03/25/18 12:19 03/25/18 12:19 03/25/18 12:19 - Medications Medications: Current Medications Famotidine (Pepcid) 20 mg PO BID [facility] Last Admin: 03/25/18 11:32 Dose: 20 mg Fluoxetine HCl (Prozac) 40 mg PO DAILY [facility] Last Admin: 03/25/18 11:31 Dose: 40 mg Folic Acid (Folic Acid) 1 mg PO DAILY [facility] Last Admin: 03/25/18 11:32 Dose: 1 mg Gabapentin (Neurontin) 100 mg PO BID [facility] Last Admin: 03/25/18 11:32 Dose: 100 mg Lorazepam (Ativan) 1 mg PO Q4 PRN PRN Reason: Symptoms of alcohol withdrawl Last Admin: 03/25/18 11:31 Dose: 1 mg Mirtazapine (Remeron) 15 mg PO HS [facility] Last Admin: 03/24/18 21:35 Dose: 15 mg Multivitamins/Minerals (Therapeutic-M Tab) 1 tab PO DAILY [facility] Last Admin: 03/25/18 11:31 Dose: 1 tab Ondansetron HCl (Zofran Inj) 4 mg IVP Q6 PRN PRN Reason: Nausea/Vomiting Oxycodone/Acetaminophen (Percocet 5/325 Mg Tab) 1 tab PO Q4 PRN PRN Reason: Pain, moderate (4-7) Stop: 03/28/18 08:57 Last Admin: 03/25/18 11:28 Dose: 1 tab Prazosin HCl (Minipress) 1 mg PO HS [facility] Last Admin: 03/24/18 21:35 Dose: 1 mg Thiamine HCl (Vitamin B1 Tab) 100 mg PO DAILY [facility] Last Admin: 03/25/18 11:31 Dose: 100 mg - Labs Labs: 03/21/18 19:48 03/21/18 19:48 PT 14.0 Seconds (9.8-13.1) H 03/21/18 19:48 INR 1.3 (0.9-1.2) H 03/21/18 19:48 APTT 22.3 Seconds (25.6-37.1) L 03/21/18 19:48 - Additional Findings Additional findings: Physical exam: Constitutional- cooperative, awake, alert Head- NCAT, PERRL Eye- PERRL, EOMI ENT- normal exam, MMM. Neck- normal inspection, supple, no JVD Respiratory- CTAB, no wheezes rales rhonchi Cardiovascular- RRR, +S1, +S2 no MRG GI/Abdominal- normal bowel sounds, soft, no mass, no hsm Skin- warm, dry Extremities Exam- + chronic left lateral malleolus wound, normal capillary refill, normal inspection Neurological Exam- alert, awake, oriented Psych- appears anxious, depressed mood Assessment and Plan - Assessment and Plan (Free Text) Plan: A/P 52 yo male with a past medical history of ETOH abuse who was in the psychiatric unit when he developed a witnessed seizure. The patient had an DIRECTOR OF EARLY CHILDHOOD and was transferred to the ED for evaluation and subsequently admitted. CT scan in the ED did not show any change in the subdural hematoma/hygroma that was detected on the previous CT scan. He does have history of having a previous seizure before, but he is not on any antiseizure medication. He has not had any further seizure activity since being on Ativan as inpatient 1) Seizure activity, possibly due to sudden decrease of the Ativan dose vs subdural hematoma - Continue telemetry monitoring - Neurology consultation with Dr. Mccarthy- EEG normal, neurologically stable - Continue PRN Ativan 2) Depression, ETOH withdrawal - Dr. 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 Chang - Continue Lidocaine - Stable from podiatric point of view 4) DVT prophylaxis - SCDs
[2018-03-26] MEDS: Oxycodone/Acetaminophen 5/325 mg Tab PO PRN ×3 (01:24→12:15)
--- NOTE | 2018-03-26 08:05 | CP.PCM.CON ---
History of Present Illness - History of Present Illness History of Present Illness: Psychiatry consult follow-up note Patient continues to report feeling depressed and anxious, w/ sleep/appetite disturbances and low energy/motivation. He continues to want inpatient psychiatric admission. -Patient accepted for voluntary psychiatric admission to 3 Past Patient History - Past Medical History & Family History Past Medical History?: Yes - Past Social History Smoking Status: Never Smoked - CARDIAC Hx Cardiac Disorders: No Hx Hypertension: No - PULMONARY Hx Respiratory Disorders: No - NEUROLOGICAL Hx Neurological Disorder: Yes Hx Seizures: Yes - HEENT Hx HEENT Problems: No - RENAL Hx Chronic Kidney Disease: No - ENDOCRINE/METABOLIC Hx Endocrine Disorders: No - HEMATOLOGICAL/ONCOLOGICAL Hx Blood Disorders: No Hx AIDS: No Hx Human Immunodeficiency Virus (HIV): No - INTEGUMENTARY Hx Dermatological Problems: No - MUSCULOSKELETAL/RHEUMATOLOGICAL Hx Musculoskeletal Disorders: Yes Hx Falls: Yes - GASTROINTESTINAL Hx Gastrointestinal Disorders: No - GENITOURINARY/GYNECOLOGICAL Hx Genitourinary Disorders: No Hx Sexually Transmitted Disorders: No - PSYCHIATRIC Hx Psychophysiologic Disorder: Yes Hx Post Traumatic Stress Disorder: Yes Hx Substance Use: Yes (Alcoholism) - SURGICAL HISTORY Hx Surgeries: No - ANESTHESIA Hx Anesthesia: No Hx Anesthesia Reactions: No Meds Home Medications: Home Medication List Medication Instructions Recorded Confirmed Type Folic Acid 1 mg PO DAILY tab 03/25/18 Rx LORazepam [Ativan] 1 mg PO Q4 PRN tab 03/25/18 Rx Mirtazapine [Remeron] 15 mg PO HS tab 03/25/18 Rx Multimineral/Multivitamin 1 tab PO DAILY tab 03/25/18 Rx [Therapeutic-M Tab] Ondansetron [Zofran Inj] 4 mg IVP Q6 PRN vial 03/25/18 Rx Allergies/Adverse Reactions: Allergies Allergy/AdvReac Type Severity Reaction Status Date / Time No Known Allergies Allergy Verified 03/11/18 11:26 - Medications Medications: Current Medications Famotidine (Pepcid) 20 mg PO BID [facility] Last Admin: 03/25/18 17:02 Dose: 20 mg Fluoxetine HCl (Prozac) 40 mg PO DAILY [facility] Last Admin: 03/25/18 11:31 Dose: 40 mg Folic Acid (Folic Acid) 1 mg PO DAILY [facility] Last Admin: 03/25/18 11:32 Dose: 1 mg Gabapentin (Neurontin) 100 mg PO BID [facility] Last Admin: 03/25/18 17:02 Dose: 100 mg Lorazepam (Ativan) 1 mg PO Q4 PRN PRN Reason: Symptoms of alcohol withdrawl Last Admin: 03/25/18 20:12 Dose: 1 mg Mirtazapine (Remeron) 15 mg PO HS [facility] Last Admin: 03/25/18 21:10 Dose: 15 mg Multivitamins/Minerals (Therapeutic-M Tab) 1 tab PO DAILY [facility] Last Admin: 03/25/18 11:31 Dose: 1 tab Ondansetron HCl (Zofran Inj) 4 mg IVP Q6 PRN PRN Reason: Nausea/Vomiting Oxycodone/Acetaminophen (Percocet 5/325 Mg Tab) 1 tab PO Q4 PRN PRN Reason: Pain, moderate (4-7) Stop: 03/28/18 08:57 Last Admin: 03/26/18 06:45 Dose: 1 tab Prazosin HCl (Minipress) 1 mg PO HS [facility] Last Admin: 03/25/18 21:10 Dose: 1 mg Thiamine HCl (Vitamin B1 Tab) 100 mg PO DAILY [facility] Last Admin: 03/25/18 11:31 Dose: 100 mg Results - Vital Signs Recent Vital Signs: Last Vital Signs Temp 97.5 F L 03/26/18 08:01 Pulse 76 03/26/18 08:01 Resp 20 03/26/18 08:01 BP 118/79 03/26/18 08:01 Pulse Ox 99 03/26/18 08:01 - Labs Result Diagrams: 03/21/18 19:48 03/21/18 19:48
--- NOTE | 2018-03-26 08:19 | CP.PCM.PN ---
<Nora Ojeda - Last Filed: 03/26/18 08:17> Subjective - Date & Time of Evaluation Date of Evaluation: 03/26/18 Time of Evaluation: 08:17 - Subjective Subjective: Podiatry progress note for attending, Dr. Chang 52 y/o male seen and evaluated at bedside along with Dr. Chang. Patient resting comfortably in bed and in no acute distress. Patient states he is in minimal pain. Dressing is seen to be dry, clean and intact. Patient denies N/F/V/SOB/ chills. Objective - Vital Signs/Intake and Output Vital Signs (last 24 hours): Temp Pulse Resp BP Pulse Ox 97.5 F L 76 20 118/79 99 03/26/18 08:01 03/26/18 08:01 03/26/18 08:01 03/26/18 08:01 03/26/18 08:01 - Medications Medications: Current Medications Famotidine (Pepcid) 20 mg PO BID [facility] Last Admin: 03/25/18 17:02 Dose: 20 mg Fluoxetine HCl (Prozac) 40 mg PO DAILY [facility] Last Admin: 03/25/18 11:31 Dose: 40 mg Folic Acid (Folic Acid) 1 mg PO DAILY [facility] Last Admin: 03/25/18 11:32 Dose: 1 mg Gabapentin (Neurontin) 100 mg PO BID [facility] Last Admin: 03/25/18 17:02 Dose: 100 mg Lorazepam (Ativan) 1 mg PO Q4 PRN PRN Reason: Symptoms of alcohol withdrawl Last Admin: 03/25/18 20:12 Dose: 1 mg Mirtazapine (Remeron) 15 mg PO [facility] Last Admin: 03/25/18 21:10 Dose: 15 mg Multivitamins/Minerals (Therapeutic-M Tab) 1 tab PO DAILY [facility] Last Admin: 03/25/18 11:31 Dose: 1 tab Ondansetron HCl (Zofran Inj) 4 mg IVP Q6 PRN PRN Reason: Nausea/Vomiting Oxycodone/Acetaminophen (Percocet 5/325 Mg Tab) 1 tab PO Q4 PRN PRN Reason: Pain, moderate (4-7) Stop: 03/28/18 08:57 Last Admin: 03/26/18 06:45 Dose: 1 tab Prazosin HCl (Minipress) 1 mg PO [facility] Last Admin: 03/25/18 21:10 Dose: 1 mg Thiamine HCl (Vitamin B1 Tab) 100 mg PO DAILY [facility] Last Admin: 03/25/18 11:31 Dose: 100 mg - Labs Labs: 03/21/18 19:48 03/21/18 19:48 PT 14.0 Seconds (9.8-13.1) H 03/21/18 19:48 INR 1.3 (0.9-1.2) H 03/21/18 19:48 APTT 22.3 Seconds (25.6-37.1) L 03/21/18 19:48 - Constitutional Appears: Well, Non-toxic, No Acute Distress - Head Exam Head Exam: ATRAUMATIC, NORMOCEPHALIC - Extremities Exam Additional comments: Left Lower Extremity Exam: VASC: DP and PT 2/4, CFT less 3 seconds X 10, TG warm to warm, minimal edema noted gely-wound NEURO: protective sensation grossly intact DERM: improving 0.5 X 0.5 cm circular ulceration to the left lateral malleolus with 100% granular base, healing wound edges, no malodor, no probe to bone, no tunneling., no clinical signs of infection MSK: minimal pain on palpation to the left lateral malleolus, pain with left ankle range of motion - Neurological Exam Neurological Exam: Alert, Awake, Oriented x3 - Psychiatric Exam Psychiatric exam: Normal Affect, Normal Mood - Skin Skin Exam: Normal Color Assessment and Plan - Assessment and Plan (Free Text) Plan: Patient seen and evaluated at bedside with attending Dr. Chang Plan discussed with attending Dr. Chang Chart, labs and vital reviewed- Afebrile Head CT 03/21/18- no acute changes from previous CT Topical lidocaine applied to the left lateral malleolus. Patient wound is stable and dressed with DSD Podiatry plan: Patient stable from podiatric point of view, and will be seen QOD Podiatry will continue to follow patient while in house <Debbie Mccoy - Last Filed: 03/26/18 09:05> Objective - Vital Signs/Intake and Output Vital Signs (last 24 hours): Temp Pulse Resp BP Pulse Ox 97.5 F L 76 20 118/79 99 03/26/18 08:01 03/26/18 08:01 03/26/18 08:01 03/26/18 08:01 03/26/18 08:01 - Medications Medications: Current Medications Famotidine (Pepcid) 20 mg PO BID [facility] Last Admin: 03/25/18 17:02 Dose: 20 mg Fluoxetine HCl (Prozac) 40 mg PO DAILY [facility] Last Admin: 03/25/18 11:31 Dose: 40 mg Folic Acid (Folic Acid) 1 mg PO DAILY [facility] Last Admin: 03/25/18 11:32 Dose: 1 mg Gabapentin (Neurontin) 100 mg PO BID [facility] Last Admin: 03/25/18 17:02 Dose: 100 mg Lorazepam (Ativan) 1 mg PO Q4 PRN PRN Reason: Symptoms of alcohol withdrawl Last Admin: 03/25/18 20:12 Dose: 1 mg Mirtazapine (Remeron) 15 mg PO HS [facility] Last Admin: 03/25/18 21:10 Dose: 15 mg Multivitamins/Minerals (Therapeutic-M Tab) 1 tab PO DAILY [facility] Last Admin: 03/25/18 11:31 Dose: 1 tab Ondansetron HCl (Zofran Inj) 4 mg IVP Q6 PRN PRN Reason: Nausea/Vomiting Oxycodone/Acetaminophen (Percocet 5/325 Mg Tab) 1 tab PO Q4 PRN PRN Reason: Pain, moderate (4-7) Stop: 03/28/18 08:57 Last Admin: 03/26/18 06:45 Dose: 1 tab Prazosin HCl (Minipress) 1 mg PO HS [facility] Last Admin: 03/25/18 21:10 Dose: 1 mg Thiamine HCl (Vitamin B1 Tab) 100 mg PO DAILY [facility] Last Admin: 03/25/18 11:31 Dose: 100 mg - Labs Labs: 03/21/18 19:48 03/21/18 19:48 PT 14.0 Seconds (9.8-13.1) H 03/21/18 19:48 INR 1.3 (0.9-1.2) H 03/21/18 19:48 APTT 22.3 Seconds (25.6-37.1) L 03/21/18 19:48 Assessment and Plan - Assessment and Plan (Free Text) Assessment: 52 year/old male with stable, non-infected left lateral malleolus wound
--- NOTE | 2018-03-26 08:45 | CP.PCM.PN ---
Subjective - Date & Time of Evaluation Date of Evaluation: 03/26/18 Time of Evaluation: 08:41 - Subjective Subjective: Mr. Otero was seen and examined at the bedside. He remains alert, oriented in all spheres. He denies any headache, or any involuntary movements. He is more conversant and would like to continue his alcohol withdrawal program. He is able to follow simple commands. There was no untoward events overnight. Objective - Vital Signs/Intake and Output Vital Signs (last 24 hours): Temp Pulse Resp BP Pulse Ox 97.5 F L 76 20 118/79 99 03/26/18 08:01 03/26/18 08:01 03/26/18 08:01 03/26/18 08:01 03/26/18 08:01 - Medications Medications: Current Medications Famotidine (Pepcid) 20 mg PO BID [facility] Last Admin: 03/25/18 17:02 Dose: 20 mg Fluoxetine HCl (Prozac) 40 mg PO DAILY [facility] Last Admin: 03/25/18 11:31 Dose: 40 mg Folic Acid (Folic Acid) 1 mg PO DAILY [facility] Last Admin: 03/25/18 11:32 Dose: 1 mg Gabapentin (Neurontin) 100 mg PO BID [facility] Last Admin: 03/25/18 17:02 Dose: 100 mg Lorazepam (Ativan) 1 mg PO Q4 PRN PRN Reason: Symptoms of alcohol withdrawl Last Admin: 03/25/18 20:12 Dose: 1 mg Mirtazapine (Remeron) 15 mg PO HS [facility] Last Admin: 03/25/18 21:10 Dose: 15 mg Multivitamins/Minerals (Therapeutic-M Tab) 1 tab PO DAILY [facility] Last Admin: 03/25/18 11:31 Dose: 1 tab Ondansetron HCl (Zofran Inj) 4 mg IVP Q6 PRN PRN Reason: Nausea/Vomiting Oxycodone/Acetaminophen (Percocet 5/325 Mg Tab) 1 tab PO Q4 PRN PRN Reason: Pain, moderate (4-7) Stop: 03/28/18 08:57 Last Admin: 03/26/18 06:45 Dose: 1 tab Prazosin HCl (Minipress) 1 mg PO HS [facility] Last Admin: 03/25/18 21:10 Dose: 1 mg Thiamine HCl (Vitamin B1 Tab) 100 mg PO DAILY [facility] Last Admin: 03/25/18 11:31 Dose: 100 mg - Labs Labs: 03/21/18 19:48 03/21/18 19:48 PT 14.0 Seconds (9.8-13.1) H 03/21/18 19:48 INR 1.3 (0.9-1.2) H 03/21/18 19:48 APTT 22.3 Seconds (25.6-37.1) L 03/21/18 19:48 - Constitutional Appears: No Acute Distress - Head Exam Head Exam: NORMAL INSPECTION - Eye Exam Pupil Exam: PERRL - Neurological Exam Neurological Exam: Alert, Awake, Oriented x3 Neuro motor strength exam: Left Upper Extremity: 5, Right Upper Extremity: 5, Left Lower Extremity: 5, Right Lower Extremity: 5 Additional comments: Neurological unchanged from previous examination. Assessment and Plan (1) Alcohol withdrawal seizure Assessment & Plan: Continue all current medical regimen. Pending EEG result. Recommend hydration, treat any electrolyte abnormalities. Status: Acute
[2018-03-26] MEDS: Multivitamin With Minerals Tab PO SCH (09:44)
[2018-03-26 12:30] VITALS: BP 129/84; PULSE 73; RESP 18; TEMP 97.4; O2SAT 98
--- NOTE | 2018-03-26 16:45 | CP.PCM.DIS ---
Provider - Provider Date of Admission: 03/23/18 11:32 Attending physician: Danny Mccallum MD Primary care physician: Dr. Mccallum Consults: Dr. Mccarthy- neurology Dr. Barron- psychiatry Dr. Chang- podiatry Time Spent in preparation of Discharge (in minutes): 15 Hospital Course - Lab Results Lab Results: Most Recent Lab Values WBC 6.2 K/uL (4.8-10.8) 03/21/18 19:48 RBC 4.84 Mil/uL (4.40-5.90) 03/21/18 19:48 Hgb 13.2 g/dL (12.0-18.0) 03/21/18 19:48 Hct 40.1 % (35.0-51.0) 03/21/18 19:48 MCV 82.9 fl (80.0-94.0) 03/21/18 19:48 MCH 27.4 pg (27.0-31.0) 03/21/18 19:48 MCHC 33.0 g/dL (33.0-37.0) 03/21/18 19:48 RDW 16.4 % (11.5-14.5) H 03/21/18 19:48 Plt Count 394 K/uL (130-400) D 03/21/18 19:48 MPV 7.1 fl (7.2-11.7) L 03/21/18 19:48 Neut % (Auto) 75.3 % (50.0-75.0) H 03/21/18 19:48 Lymph % (Auto) 13.7 % (20.0-40.0) L 03/21/18 19:48 [place] % (Auto) 10.4 % (0.0-10.0) H 03/21/18 19:48 Eos % (Auto) 0.3 % (0.0-4.0) 03/21/18 19:48 Baso % (Auto) 0.3 % (0.0-2.0) 03/21/18 19:48 Neut # (Auto) 4.7 K/uL (1.8-7.0) 03/21/18 19:48 Lymph # (Auto) 0.8 K/uL (1.0-4.3) L 03/21/18 19:48 [place] # (Auto) 0.6 K/uL (0.0-0.8) 03/21/18 19:48 Eos # (Auto) 0.0 K/uL (0.0-0.7) 03/21/18 19:48 Baso # (Auto) 0.0 K/uL (0.0-0.2) 03/21/18 19:48 PT 14.0 Seconds (9.8-13.1) H 03/21/18 19:48 INR 1.3 (0.9-1.2) H 03/21/18 19:48 APTT 22.3 Seconds (25.6-37.1) L 03/21/18 19:48 Sodium 139 mmol/l (132-148) 03/21/18 19:48 Potassium 3.8 MMOL/L (3.6-5.0) 03/21/18 19:48 Chloride 101 mmol/L (98-107) 03/21/18 19:48 Carbon Dioxide 22 mmol/L (22-30) 03/21/18 19:48 Anion Gap 20 (10-20) 03/21/18 19:48 BUN 11 mg/dl (9-20) 03/21/18 19:48 Creatinine 0.8 mg/dl (0.8-1.5) 03/21/18 19:48 Est GFR ( Amer) > 60 03/21/18 19:48 Est GFR (Non-Af Amer) > 60 03/21/18 19:48 Random Glucose 119 mg/dL (75-110) H 03/21/18 19:48 Calcium 9.5 mg/dL (8.4-10.2) 03/21/18 19:48 Phosphorus 2.1 mg/dl (2.5-4.5) L 03/21/18 19:48 Magnesium 2.2 MG/DL (1.6-2.3) 03/21/18 19:48 Total Bilirubin 0.6 mg/dl (0.2-1.3) 03/21/18 19:48 AST 44 U/L (17-59) 03/21/18 19:48 ALT 42 U/L (21-72) 03/21/18 19:48 Alkaline Phosphatase 53 U/L (38-126) 03/21/18 19:48 Total Creatine Kinase 37 U/L (55-170) L 03/21/18 19:48 Total Protein 8.5 G/DL (6.3-8.2) H 03/21/18 19:48 Albumin 4.7 g/dL (3.5-5.0) 03/21/18 19:48 Globulin 3.8 gm/dL (2.2-3.9) 03/21/18 19:48 Albumin/Globulin Ratio 1.2 (1.0-2.1) 03/21/18 19:48 Urine Opiates Screen Negative (NEGATIVE) 03/21/18 19:48 Urine Methadone Screen Negative (NEGATIVE) 03/21/18 19:48 Ur Barbiturates Screen Negative (NEGATIVE) 03/21/18 19:48 Ur Phencyclidine Scrn Negative (NEGATIVE) 03/21/18 19:48 Ur Amphetamines Screen Negative (NEGATIVE) 03/21/18 19:48 U Benzodiazepines Scrn Negative (NEGATIVE) 03/21/18 19:48 U Oth Cocaine Metabols Negative (NEGATIVE) 03/21/18 19:48 U Cannabinoids Screen Negative (NEGATIVE) 03/21/18 19:48 Alcohol, Quantitative < 10 mg/dl (0-10) 03/21/18 19:48 - Hospital Course Hospital Course: 52 yo male with a past medical history of ETOH abuse who was in the psychiatric unit when he developed a witnessed seizure. The patient had an [employer] and was transferred to the ED for evaluation and subsequently admitted. CT scan in the ED did not show any change in the subdural hematoma/hygroma that was detected on the previous CT scan. He does have history of having a previous seizure before, but he is not on any antiseizure medication. He has not had any further seizure activity since being on Ativan as inpatient 1) Seizure activity, possibly due to sudden decrease of the Ativan dose vs subdural hematoma - Continue telemetry monitoring - Neurology consultation with Dr. Mccarthy- EEG normal, neurologically stable - Continue PRN Ativan 2) Depression, ETOH withdrawal - Dr. 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 Chang - Continue Lidocaine - Stable from podiatric point of view 4) DVT prophylaxis - SCDs Discharge Exam - Additional Findings Additional findings: Physical exam: Constitutional- cooperative, awake, alert Head- NCAT, PERRL Eye- PERRL, EOMI ENT- normal exam, MMM. Neck- normal inspection, supple, no JVD Respiratory- CTAB, no wheezes rales rhonchi Cardiovascular- RRR, +S1, +S2 no MRG GI/Abdominal- normal bowel sounds, soft, no mass, no hsm Skin- warm, dry Extremities Exam- + chronic left lateral malleolus wound, normal capillary refill, normal inspection Neurological Exam- alert, awake, oriented Psych- appears anxious, depressed mood Discharge Plan - Follow Up Plan Condition: GOOD Disposition: DISCH TO PSYCH HOSP PLAN READ Instructions: Seizures, Adult (DC), Alcohol Withdrawal (DC)
== END 2018-03-26 15:47 | DRG 889 ==
LOC: H.ER 19:14 → H.ERHOLD 20:34 → H.TEL 23:05 → OBSVTOIN 03-23 11:32
PROVIDERS: ADMIT Internal Medicine; ATTEND Internal Medicine
DX: R56.9 Unspecified convulsions (principal); F10.239 Alcohol dependence with withdrawal, unspecified; T42.4X5A Adverse effect of benzodiazepines, initial encounter; Y90.0 Blood alcohol level of less than 20 mg/100 ml; F43.10 Post-traumatic stress disorder, unspecified; G89.29 Other chronic pain; F32.9 Major depressive disorder, single episode, unspecified; S91.002A Unspecified open wound, left ankle, initial encounter; S06.5X9D Traumatic subdural hemorrhage with loss of consciousness of unspecified duration, subsequent encounter

== ENCOUNTER 2018-03-26 15:00 | Inpatient (IN) | payer MEDICAID ==
[2018-03-26 15:59] VITALS: BMI 26.6
[2018-03-26] MEDS ORDERED: Alum-Mag Hydrox-Simethicone Susp (30 mL) PO PRN (16:54)
[2018-03-26] MEDS ORDERED: Bismuth Subsalicylate 262 mg/15 ml Sus (240 ml) PO PRN (16:54)
[2018-03-26] MEDS ORDERED: Magnesium Hydroxide Susp 30 ml UD PO PRN (16:54)
--- NOTE | 2018-03-26 17:14 | PCM.BM ---
Treatment Plan Problems - Problems identified on initial assessmt Hopelessness/Helplessness Date Initiated: 03/26/18 Time Initiated: 17:13 Assessment reference: NA Status: Active Priority: 1 Treatment assets and liabiliti Patient Assests: cooperative, resourceful, self-reliant, ADL independent, good support system, negotiates basic needs, cognitively intact Patient Liabilities: live alone, substance abuse, medical problems - Milieu Protocol Maintain good personal hygiene: daily Encourage regular showers, daily Remind patient to perform daily oral care, daily Assist patient to perform ADL's Maintain personal safety: every shift Educate patient to report safety concerns to staff, every shift Monitor environment for contraband/sharps Medication safety: Monitor for expected outcome, potential side effects: every shift, Assess barriers to learning: every shift, Assess readiness for medication education: every shift
[2018-03-26] MEDS: Oxycodone/Acetaminophen 5/325 mg Tab PO PRN ×2 (18:00→21:59)
[2018-03-27] MEDS: Oxycodone/Acetaminophen 5/325 mg Tab PO PRN ×5 (04:12→22:57)
[2018-03-27] MEDS: Multivitamin With Minerals Tab PO SCH (08:34)
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
--- NOTE | 2018-03-27 10:51 | CP.PCM.PN ---
Subjective - Date & Time of Evaluation Date of Evaluation: 03/27/18 Time of Evaluation: 10:49 - Subjective Subjective: Podiatry progress note: Dr. Chang 52 year old male was seen and evaluated at bedside along with Dr. Chang in psych unit. Patient resting comfortably in bed and in no acute distress. Patient is AAOx3 and appears in NAD. Denies of any acute overnight events. Denies of any pain today. Patient denies N/F/V/SOB/chills. No other pedal complains. Objective - Vital Signs/Intake and Output Vital Signs (last 24 hours): Temp Pulse Resp BP Pulse Ox 97.8 F 80 18 140/90 03/26/18 21:56 03/26/18 21:56 03/26/18 21:56 03/26/18 21:56 - Medications Medications: Current Medications Acetaminophen (Tylenol 325mg Tab) 650 mg PO Q4 PRN PRN Reason: Pain, moderate (4-7) Al Hydrox/Mg Hydrox/Simethicone (Maalox Plus 30 Ml) 30 ml PO Q4 PRN PRN Reason: Dyspepsia Bismuth Subsalicylate (Pepto-Bismol) 524 mg PO Q4 PRN PRN Reason: Diarrhea Famotidine (Pepcid) 20 mg PO BID [facility] Last Admin: 03/27/18 08:35 Dose: 20 mg Fluoxetine HCl (Prozac) 40 mg PO DAILY [facility] Last Admin: 03/27/18 08:33 Dose: 40 mg Folic Acid (Folic Acid) 1 mg PO DAILY [facility] Last Admin: 03/27/18 08:33 Dose: 1 mg Gabapentin (Neurontin) 100 mg PO BID [facility] Last Admin: 03/27/18 08:33 Dose: 100 mg Lorazepam (Ativan) 0.5 mg PO Q6 PRN PRN Reason: Anixety/Agitation Stop: 04/09/18 16:55 Lorazepam (Ativan) 1 mg PO Q6 [facility] Magnesium Hydroxide (Milk Of Magnesia) 30 ml PO HS PRN PRN Reason: Constipation Mirtazapine (Remeron) 15 mg PO HS [facility] Last Admin: 03/26/18 21:08 Dose: 15 mg Multivitamins/Minerals (Therapeutic-M Tab) 1 tab PO DAILY [facility] Last Admin: 03/27/18 08:34 Dose: 1 tab Oxycodone/Acetaminophen (Percocet 5/325 Mg Tab) 1 tab PO Q4 PRN PRN Reason: Pain, severe (8-10) Stop: 03/29/18 17:01 Last Admin: 03/27/18 08:37 Dose: 1 tab Prazosin HCl (Minipress) 1 mg PO HS [facility] Last Admin: 03/26/18 21:08 Dose: 1 mg Thiamine HCl (Vitamin B1 Tab) 100 mg PO DAILY [facility] Last Admin: 03/27/18 08:34 Dose: 100 mg - Constitutional Appears: Well, Non-toxic, No Acute Distress - Extremities Exam Additional comments: Left Lower Extremity Exam: VASC: DP and PT 2/4, CFT less 3 seconds X 10, TG warm to warm, minimal edema noted gely-wound NEURO: protective sensation grossly intact DERM: improving 0.5 X 0.5 cm circular ulceration to the left lateral malleolus with 100% granular base, healing wound edges, no malodor, no probe to bone, no tunneling., no clinical signs of infection MSK: minimal pain on palpation to the left lateral malleolus, pain with left ankle range of motion - Neurological Exam Neurological Exam: Alert, Awake, Oriented x3 - Psychiatric Exam Psychiatric exam: Normal Affect, Normal Mood Assessment and Plan - Assessment and Plan (Free Text) Assessment: 52 year old male with stable, non-infected left lateral malleolus wound Plan: Patient seen and evaluated at bedside with attending Dr. Chang Chart, labs and vital reviewed- Afebrile Head CT 03/21/18- no acute changes from previous CT Patient wound is stable and dressed with DSD Podiatry plan: Patient stable from podiatric point of view, and will be seen QOD Podiatry will continue to follow patient while in house
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
[2018-03-28] MEDS: Multivitamin With Minerals Tab PO SCH (08:29)
[2018-03-28] MEDS: Oxycodone/Acetaminophen 5/325 mg Tab PO PRN ×3 (08:33→19:35)
--- NOTE | 2018-03-28 17:47 | PCM.PYCHPN ---
Psychiatric Progress Note - Psychiatric Progress Note Patient seen today, length of contact: pt is seen and evaluated Patient Chief Complaint: pt has remained less depressed but denies any withdrawl symptoms . Mental Status Examination - Cognitive Function Orientation: Person, Place, Situation, Time - Mood Mood: Depressed - Affect Affect: Constricted - Formal Thought Process Formal Thought Process: No Impairment
[2018-03-29] MEDS: Oxycodone/Acetaminophen 5/325 mg Tab PO PRN ×4 (00:27→23:35)
--- NOTE | 2018-03-29 06:09 | CP.PCM.PN ---
Subjective - Date & Time of Evaluation Date of Evaluation: 03/29/18 Time of Evaluation: 06:06 - Subjective Subjective: Podiatry progress note for attending: Dr. Chang 52 year old male patient was seen and evaluated at bedside in psych unit. Patient was resting comfortably in bed and in no acute distress. Patient is AAOx3. Patient denies any acute overnight events. Patient states that he has mild pain yesterday night. Patient denies any overnight N/F/V/SOB/chills. Patient denies any other pedal complains. Objective - Vital Signs/Intake and Output Vital Signs (last 24 hours): Temp Pulse Resp BP Pulse Ox 97.7 F 72 19 109/79 03/29/18 05:20 03/29/18 05:20 03/29/18 05:20 03/29/18 05:20 - Medications Medications: Current Medications Acetaminophen (Tylenol 325mg Tab) 650 mg PO Q4 PRN PRN Reason: Pain, moderate (4-7) Al Hydrox/Mg Hydrox/Simethicone (Maalox Plus 30 Ml) 30 ml PO Q4 PRN PRN Reason: Dyspepsia Bismuth Subsalicylate (Pepto-Bismol) 524 mg PO Q4 PRN PRN Reason: Diarrhea Famotidine (Pepcid) 20 mg PO BID [facility] Last Admin: 03/28/18 16:56 Dose: 20 mg Fluoxetine HCl (Prozac) 40 mg PO DAILY [facility] Last Admin: 03/28/18 08:30 Dose: 40 mg Folic Acid (Folic Acid) 1 mg PO DAILY [facility] Last Admin: 03/28/18 08:29 Dose: 1 mg Gabapentin (Neurontin) 100 mg PO BID [facility] Last Admin: 03/28/18 16:56 Dose: 100 mg Lorazepam (Ativan) 0.5 mg PO Q6 PRN PRN Reason: Anixety/Agitation Stop: 04/09/18 16:55 Lorazepam (Ativan) 1 mg PO Q6 [facility] Last Admin: 03/29/18 05:15 Dose: 1 mg Magnesium Hydroxide (Milk Of Magnesia) 30 ml PO HS PRN PRN Reason: Constipation Mirtazapine (Remeron) 15 mg PO HS [facility] Last Admin: 03/28/18 21:11 Dose: 15 mg Multivitamins/Minerals (Therapeutic-M Tab) 1 tab PO DAILY [facility] Last Admin: 03/28/18 08:29 Dose: 1 tab Oxycodone/Acetaminophen (Percocet 5/325 Mg Tab) 1 tab PO Q4 PRN PRN Reason: Pain, severe (8-10) Stop: 03/29/18 17:01 Last Admin: 03/29/18 00:27 Dose: 1 tab Prazosin HCl (Minipress) 1 mg PO HS [facility] Last Admin: 03/28/18 21:11 Dose: 1 mg Thiamine HCl (Vitamin B1 Tab) 100 mg PO DAILY [facility] Last Admin: 03/28/18 08:30 Dose: 100 mg - Constitutional Appears: Well, Non-toxic, No Acute Distress - Head Exam Head Exam: ATRAUMATIC, NORMOCEPHALIC - Extremities Exam Additional comments: Left Lower Extremity focused Exam: VASC: DP/PT 2/4, Cap refill < 3 seconds in all digits, Temp. gradient warm to cool, minimal edema noted gely-wound area. NEURO: protective sensation grossly intact DERM: improving 0.5 X 0.5 cm circular ulceration to the left lateral malleolus with 100% granular base, healing wound edges, no malodor, no probe to bone, no tunneling, No undermining, no clinical signs of infection MSK: minimal pain on palpation to the left lateral malleolus, pain with left ankle range of motion - Neurological Exam Neurological Exam: Alert, Awake - Psychiatric Exam Psychiatric exam: Normal Affect, Normal Mood Assessment and Plan - Assessment and Plan (Free Text) Assessment: 52 year old male with stable, non-infected left lateral malleolus wound Plan: Patient seen and evaluated at bedside Chart, labs and vital reviewed- Afebrile Head CT 03/21/18- no acute changes from previous CT Patient wound is stable and dressed with DSD Podiatry plan: Patient stable from podiatric point of view, and still be seen QOD Podiatry will continue to follow patient while in house
[2018-03-29] MEDS: Multivitamin With Minerals Tab PO SCH (08:21)
--- NOTE | 2018-03-29 11:17 | PCM.PYCHPN ---
Psychiatric Progress Note - Psychiatric Progress Note Patient seen today, length of contact: Patient evaluated, case discussed with team, chart reviewed Patient Chief Complaint: "I'm depressed." Problems Identified/Issues Discussed: Patient continues to report feeling depressed w/ sleep/appetite disturbances. No current signs/symptoms of ETOH withdrawal; will taper Ativan. NO AH/VH/ paranoia/SI/HI. Psychoeducation provided on the dangers of ETOH abuse. Medication Change: Yes (Taper Ativan) Medical Record Reviewed: Yes Consults ordered or reviewed: Medicine consult Mental Status Examination - Cognitive Function Orientation: Person, Place, Situation, Time Memory: Intact Attention: WNL Concentration: WNL Association: WNL Fund of Knowledge: [facility] Decription of patient's judgement and insights: Improving I/J - Mood Mood: Depressed - Affect Affect: Constricted - Speech Speech: Appropriate - Formal Thought Process Formal Thought Process: No Impairment Psychotic Thoughts and Behaviors: No AH/VH/paranoia/delusions - Suicidal Ideation Suicidal Ideation: No - Homicidal Ideation Homicidal Ideation: No Goal/Treatment Plan - Goal/Treatment Plan Need for Continued Stay: Remain at risks for inpatient hospitalization, Severe depression anxiety Progress Toward Problem(s) and Goals/Treatment Plan: Major Depressive Disorder; Alcohol Use Disorder -Individual and group therapy -Medicine consult -Ativan to prevent alcohol withdrawal seizures; will taper gradually -Prozac 40 mg PO Daily, Remeron 15 mg PO HS, Prazosin 1 mg PO HS -Psychoeducation -Disposition planning Estimated Date of D/C: 04/02/18
--- NOTE | 2018-03-29 23:35 | PN ---
DATE: 03/29/2018 DAILY PROGRESS NOTE SUBJECTIVE: The patient is seen today, 03/29/2018. He is not in any cardiopulmonary distress. He still has tremors. PHYSICAL EXAMINATION: VITAL SIGNS: Blood pressure 144/86, temperature 97.3, respiratory rate 20, and pulse 100. HEENT: Pupils equal, reactive to light. Normal-appearing mucosa of the conjunctivae, oropharynx and nasal membrane mucosa. NECK: Supple. No JVD. No carotid bruit. No lymph node. No thyromegaly. CHEST AND LUNGS: Bilateral symmetrical expansion. Good air exchange. No rales. No rhonchi. CARDIOVASCULAR SYSTEM: PMI not localized. S1, S2. No additional sounds. ABDOMEN: Normoactive bowel sounds. No tenderness. No organomegaly. No masses. EXTREMITIES: No cyanosis, no clubbing, no edema. LITIGATION SPECIALIST: Alert, awake, oriented x2. No neurological deficit could be appreciated. ASSESSMENT: Alcohol withdrawal, history of alcohol abuse, seizure disorder, seizure related to alcohol withdrawal. PLAN: Continue current Ativan and taper as ordered by Psychiatry. Continue thiamine and multivitamin. Danny Mccallum MD
[2018-03-30] MEDS: Multivitamin With Minerals Tab PO SCH (08:14)
[2018-03-30] MEDS: Oxycodone/Acetaminophen 5/325 mg Tab PO PRN ×3 (08:16→18:57)
--- NOTE | 2018-03-30 08:51 | PN ---
DATE: 03/24/2018 SUBJECTIVE: The patient was still having tremors and Ativan was being tapered. OBJECTIVE: VITAL SIGNS: Blood pressure was 119/76, temperature 98.5, respiratory rate 16, and pulse 73. HEENT: Pupils equal and reactive to light. Normal-appearing mucosa of the conjunctivae, oropharynx, and nasal membrane mucosa. NECK: Supple. No JVD. No carotid bruit. No lymph node. No thyromegaly. CHEST AND LUNGS: Bilateral symmetrical expansion. Good air exchange. No rales, no rhonchi. CARDIOVASCULAR SYSTEM: PMI not localized. S1, S2. No additional sounds. ABDOMEN: Normoactive bowel sounds. No tenderness. No organomegaly. No masses. Extremities: No cyanosis, no clubbing, no edema. FEDERAL JUDICIAL LAW CLERK: Alert, awake, and oriented x2. No neurological deficit could be appreciated. ASSESSMENT: 1. Seizure. 2. Alcohol abuse. 3. Alcohol withdrawal. PLAN: Continue current withdrawing of Ativan, and continue thiamine and multivitamins. Follow Psychiatry. Danny Mccallum MD
--- NOTE | 2018-03-30 12:09 | PCM.PYCHPN ---
Psychiatric Progress Note - Psychiatric Progress Note Patient seen today, length of contact: Patient evaluated, case discussed with team, chart reviewed Patient Chief Complaint: "I'm depressed." Problems Identified/Issues Discussed: Patient continues to report feeling depressed w/ sleep/appetite disturbances. No current signs/symptoms of ETOH withdrawal. NO AH/VH/paranoia/SI/HI. He reports that the Trazodone was more helpful for sleep and requested to be restarted on Trazodone and to stop the Remeron. Medication Change: Yes (Stop Remeron, Restart Trazodone) Medical Record Reviewed: Yes Consults ordered or reviewed: Medicine consult Mental Status Examination - Cognitive Function Orientation: Person, Place, Situation, Time Memory: Intact Attention: WNL Concentration: WNL Association: WNL Fund of Knowledge: WNL Decription of patient's judgement and insights: Improving I/J - Mood Mood: Depressed - Affect Affect: Constricted - Speech Speech: Appropriate - Formal Thought Process Formal Thought Process: No Impairment Psychotic Thoughts and Behaviors: No AH/VH/paranoia/delusions - Suicidal Ideation Suicidal Ideation: No - Homicidal Ideation Homicidal Ideation: No Goal/Treatment Plan - Goal/Treatment Plan Need for Continued Stay: Remain at risks for inpatient hospitalization, Severe depression anxiety Progress Toward Problem(s) and Goals/Treatment Plan: Major Depressive Disorder; Alcohol Use Disorder; Generalized Anxiety Disorder -Individual and group therapy -Medicine consult -Ativan for anxiety and to prevent alcohol withdrawal seizures; will taper gradually -Prozac 40 mg PO Daily, Prazosin 1 mg PO HS -Stop Remeron; restart Trazodone -Psychoeducation -Disposition planning Estimated Date of D/C: 04/02/18
[2018-03-31] MEDS: Oxycodone/Acetaminophen 5/325 mg Tab PO PRN ×4 (03:28→18:56)
[2018-03-31] MEDS: Multivitamin With Minerals Tab PO SCH (08:04)
--- NOTE | 2018-03-31 08:19 | CP.PCM.PN ---
Subjective - Date & Time of Evaluation Date of Evaluation: 03/31/18 Time of Evaluation: : - Subjective Subjective: Podiatry progress note for attending: Dr. Chang 52 year old male patient was seen and evaluated at bedside in psych unit. Patient was resting comfortably in bed. Patient is AAOx3 and in NAD. Patient denies any acute overnight events. Patient denies any pain in the ulcer site. Patient states that his psychiatrist informed him that he will be discharged from the hospital on Monday 04/02. Patient denies any overnight N/F/V/SOB/ chills. Patient denies any other pedal complains. Objective - Vital Signs/Intake and Output Vital Signs (last 24 hours): Temp Pulse Resp BP Pulse Ox 97.7 F 69 18 112/65 03/31/18 06:00 03/31/18 06:00 03/31/18 06:00 03/31/18 06:00 - Medications Medications: Current Medications Acetaminophen (Tylenol 325mg Tab) 650 mg PO Q4 PRN PRN Reason: Pain, moderate (4-7) Al Hydrox/Mg Hydrox/Simethicone (Maalox Plus 30 Ml) 30 ml PO Q4 PRN PRN Reason: Dyspepsia Bismuth Subsalicylate (Pepto-Bismol) 524 mg PO Q4 PRN PRN Reason: Diarrhea Famotidine (Pepcid) 20 mg PO BID [facility] Last Admin: 03/31/18 08:04 Dose: 20 mg Fluoxetine HCl (Prozac) 40 mg PO DAILY [facility] Last Admin: 03/31/18 08:05 Dose: 40 mg Folic Acid (Folic Acid) 1 mg PO DAILY [facility] Last Admin: 03/31/18 08:05 Dose: 1 mg Gabapentin (Neurontin) 100 mg PO BID [facility] Last Admin: 03/31/18 08:05 Dose: 100 mg Lorazepam (Ativan) 0.5 mg PO Q6 PRN PRN Reason: Anixety/Agitation Stop: 04/09/18 16:55 Last Admin: 03/29/18 15:47 Dose: 0.5 mg Lorazepam (Ativan) 0.5 mg PO BID [facility] Lorazepam (Ativan) 1 mg PO HS [facility] Magnesium Hydroxide (Milk Of Magnesia) 30 ml PO HS PRN PRN Reason: Constipation Multivitamins/Minerals (Therapeutic-M Tab) 1 tab PO DAILY [facility] Last Admin: 03/31/18 08:04 Dose: 1 tab Oxycodone/Acetaminophen (Percocet 5/325 Mg Tab) 1 tab PO Q4 PRN PRN Reason: Pain, severe (8-10) Stop: 04/01/18 23:26 Last Admin: 03/31/18 03:28 Dose: 1 tab Prazosin HCl (Minipress) 1 mg PO HS [facility] Last Admin: 03/30/18 21:05 Dose: 1 mg Thiamine HCl (Vitamin B1 Tab) 100 mg PO DAILY [facility] Last Admin: 03/31/18 08:04 Dose: 100 mg Trazodone HCl (Desyrel) 100 mg PO HS [facility] Last Admin: 03/30/18 21:05 Dose: 100 mg - Constitutional Appears: Well, Non-toxic, No Acute Distress - Head Exam Head Exam: ATRAUMATIC, NORMOCEPHALIC - Extremities Exam Additional comments: Left Lower Extremity focused Exam: VASC: DP/PT 2/4, Cap refill < 3 seconds in all digits, Temp. gradient warm to cool, No edema. NEURO: protective and gross sensation grossly intact. DERM: Improving 0.5 X 0.5 cm circular ulceration to the left lateral malleolus with 100% granular base, healing wound edges, no malodor, no probe to bone, no tunneling, No undermining, no clinical signs of infection. Ulcer is almost closed. MSK: Minimal pain on palpation to the left lateral malleolus. No pain with ROM of the foot joints. - Neurological Exam Neurological Exam: Alert, Awake, Oriented x3 - Psychiatric Exam Psychiatric exam: Normal Affect, Normal Mood Assessment and Plan - Assessment and Plan (Free Text) Assessment: 52 year old male with stable, non-infected left lateral malleolus wound Plan: Patient seen and evaluated at bedside Chart, labs and vital reviewed- Afebrile Head CT 03/21/18- no acute changes from previous CT Patient wound is stable and dressed with DSD, and norris bandage Podiatry plan: Patient stable from podiatric point of view, and still be seen QOD untill he is discharged from the hospital. Podiatry will continue to follow patient while in house
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
[2018-04-01] MEDS: Oxycodone/Acetaminophen 5/325 mg Tab PO PRN ×2 (03:08→08:44)
--- NOTE | 2018-04-01 04:53 | PN ---
DATE: 03/31/2018 DAILY PROGRESS NOTE SUBJECTIVE: The patient is seen today, 03/31/2018. He is not in any cardiopulmonary distress. PHYSICAL EXAMINATION: VITAL SIGNS: Blood pressure 112/65, temperature 97.7, respiratory rate 18, and pulse 69. HEENT: Pupils are equal and reactive to light. Normal-appearing mucosa of the conjunctivae, oropharynx and nasal membrane mucosa. NECK: Supple. No JVD. No carotid bruit. No lymph node. No thyromegaly. CHEST AND LUNG: Bilateral symmetrical expansion. Good air exchange. No rales. No rhonchi. CARDIOVASCULAR SYSTEM: PMI not localized. S1, S2. No additional sounds. ABDOMEN: Normoactive bowel sounds. No tenderness. No organomegaly. No masses. EXTREMITIES: No cyanosis. No clubbing. No edema. FRONT END LOADER DRIVER: Awake, alert, and oriented x2. No neurological deficit could be appreciated. ASSESSMENT: Alcohol abuse, alcohol withdrawal. PLAN: Ativan is being tapered off. Discussed the patient condition with psychiatrist. Danny Mccallum MD
[2018-04-01] MEDS: Multivitamin With Minerals Tab PO SCH (08:40)
--- NOTE | 2018-04-01 11:34 | PCM.PYCHPN ---
Psychiatric Progress Note - Psychiatric Progress Note Patient seen today, length of contact: Patient evaluated, case discussed with team, chart reviewed Patient Chief Complaint: "I'm feeling better." Problems Identified/Issues Discussed: Patient reports that his mood continues to improve. He is goal oriented towards discharge. Improved sleep. No current signs/symptoms of ETOH withdrawal. NO AH/VH/paranoia/SI/HI. Medication Change: Yes (Taper Ativan) Medical Record Reviewed: Yes Consults ordered or reviewed: Medicine consult Mental Status Examination - Cognitive Function Orientation: Person, Place, Situation, Time Memory: Intact Attention: WNL Concentration: WNL Association: [facility] Fund of Knowledge: [facility] Decription of patient's judgement and insights: Fair I/J - Mood Mood: Depressed - Affect Affect: Broad - Speech Speech: Appropriate - Formal Thought Process Formal Thought Process: No Impairment Psychotic Thoughts and Behaviors: No AH/VH/paranoia/delusions - Suicidal Ideation Suicidal Ideation: No - Homicidal Ideation Homicidal Ideation: No Goal/Treatment Plan - Goal/Treatment Plan Need for Continued Stay: Discharge may exacerbated symptoms Progress Toward Problem(s) and Goals/Treatment Plan: Major Depressive Disorder; Alcohol Use Disorder; Generalized Anxiety Disorder; patient is improving clinically and will be discharged tomorrow -Individual and group therapy -Medicine consult -Ativan for anxiety; will discharge with an Ativan taper -Prozac 40 mg PO Daily, Prazosin 1 mg PO HS -Trazodone 150 mg PO HS -Psychoeducation -Disposition planning Estimated Date of D/C: 04/02/18
--- NOTE | 2018-04-01 11:52 | CP.PCM.PN ---
Subjective - Date & Time of Evaluation Date of Evaluation: 04/01/18 Time of Evaluation: 11:42 - Subjective Subjective: Podiatry progress note for attending: Dr. Chang 52 year old male patient was seen and evaluated at bedside in psych unit. Patient was resting comfortably in bed and in no acute distress. Patient is AAOx3. Patient denies any acute overnight events. Patient states that he has mild pain at the site of the ulcer. Patient denies any overnight N/F/V/SOB/ chills. Patient denies any other pedal complains. Patient is going to be discharged to his home tomorrow. Objective - Vital Signs/Intake and Output Vital Signs (last 24 hours): Temp Pulse Resp BP Pulse Ox 97.1 F L 67 18 125/71 04/01/18 06:00 04/01/18 06:00 04/01/18 06:00 04/01/18 06:00 - Medications Medications: Current Medications Acetaminophen (Tylenol 325mg Tab) 650 mg PO Q4 PRN PRN Reason: Pain, moderate (4-7) Al Hydrox/Mg Hydrox/Simethicone (Maalox Plus 30 Ml) 30 ml PO Q4 PRN PRN Reason: Dyspepsia Bismuth Subsalicylate (Pepto-Bismol) 524 mg PO Q4 PRN PRN Reason: Diarrhea Famotidine (Pepcid) 20 mg PO BID [facility] Last Admin: 04/01/18 08:40 Dose: 20 mg Fluoxetine HCl (Prozac) 40 mg PO DAILY [facility] Last Admin: 04/01/18 08:40 Dose: 40 mg Folic Acid (Folic Acid) 1 mg PO DAILY [facility] Last Admin: 04/01/18 08:39 Dose: 1 mg Gabapentin (Neurontin) 100 mg PO BID [facility] Last Admin: 04/01/18 08:40 Dose: 100 mg Lorazepam (Ativan) 0.5 mg PO Q6 PRN PRN Reason: Anixety/Agitation Stop: 04/09/18 16:55 Last Admin: 03/31/18 15:28 Dose: 0.5 mg Lorazepam (Ativan) 0.5 mg PO TID [facility] Magnesium Hydroxide (Milk Of Magnesia) 30 ml PO HS PRN PRN Reason: Constipation Multivitamins/Minerals (Therapeutic-M Tab) 1 tab PO DAILY [facility] Last Admin: 04/01/18 08:40 Dose: 1 tab Oxycodone/Acetaminophen (Percocet 5/325 Mg Tab) 1 tab PO Q4 PRN PRN Reason: Pain, severe (8-10) Stop: 04/01/18 23:26 Last Admin: 04/01/18 08:44 Dose: 1 tab Prazosin HCl (Minipress) 1 mg PO HS [facility] Last Admin: 03/31/18 21:02 Dose: 1 mg Thiamine HCl (Vitamin B1 Tab) 100 mg PO DAILY [facility] Last Admin: 04/01/18 08:40 Dose: 100 mg Trazodone HCl (Desyrel) 150 mg PO HS [facility] Last Admin: 03/31/18 21:02 Dose: 150 mg - Constitutional Appears: Well, Non-toxic, No Acute Distress - Head Exam Head Exam: ATRAUMATIC, NORMOCEPHALIC - Extremities Exam Additional comments: Left Lower Extremity focused Exam: VASC: DP/PT 2/4, Cap refill < 3 seconds in all digits, Temp. gradient warm to cool, No edema. NEURO: protective and gross sensation grossly intact. DERM: Improving 0.4 X 0.4 cm circular healed ulcer to the left lateral malleolus which is covered partially by dried scab. No clinical signs of infection. MSK: Minimal pain on palpation to the left lateral malleolus. No pain with ROM of all the major foot joints. - Neurological Exam Neurological Exam: Alert, Awake, Oriented x3 - Psychiatric Exam Psychiatric exam: Normal Affect, Normal Mood Assessment and Plan - Assessment and Plan (Free Text) Assessment: 52 year old male with stable, healed, non-infected left lateral malleolus wound Plan: Patient seen and evaluated at bedside Chart, labs and vital reviewed- Afebrile Head CT 03/21/18- no acute changes from previous CT Patient ulcer is stable and healed. dressing is done using DSD, and edison bandage. after contacting the block and case maker patient can get his dressing supply OTC (Angelia , 4X4 gauze and Edison bandage) Patient taught how to apply the dressing at home. Patient instructed to change the dressing every other day. Patient instructed to keep the dressing clean, dry and intact. All patient questions and concerns answered to his satisfaction. Patient expressed verbal understanding. Podiatry plan: Patient stable from podiatric point of view, ready for discharge. Patient will be discharged tomorrow to his home. Patient will follow up after discharge at [facility]
[2018-04-01] MEDS: Naproxen 500 MG TAB PO PRN (21:13)
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
[2018-04-02 05:58] VITALS: BP 130/88; PULSE 84; RESP 19; TEMP 97.5
--- NOTE | 2018-04-02 07:26 | CP.PCM.PN ---
Subjective - Date & Time of Evaluation Date of Evaluation: 04/02/18 Time of Evaluation: 07:26 - Subjective Subjective: Podiatry progress note for attending: Dr. Chang 52 year old male patient was seen and evaluated at bedside in psych unit. Patient was resting comfortably in bed. Patient is AAOx3 and in NAD. Patient denies any acute overnight events. Patient denies any pain in the ulcer site. Patient is going to be discharged today to his home. Patient denies any overnight N/F/V/SOB/chills. Patient denies any other pedal complains. Objective - Vital Signs/Intake and Output Vital Signs (last 24 hours): Temp Pulse Resp BP Pulse Ox 97.5 F L 84 19 130/88 04/02/18 05:57 04/02/18 05:57 04/02/18 05:57 04/02/18 05:57 - Medications Medications: Current Medications Acetaminophen (Tylenol 325mg Tab) 650 mg PO Q4 PRN PRN Reason: Pain, moderate (4-7) Al Hydrox/Mg Hydrox/Simethicone (Maalox Plus 30 Ml) 30 ml PO Q4 PRN PRN Reason: Dyspepsia Bismuth Subsalicylate (Pepto-Bismol) 524 mg PO Q4 PRN PRN Reason: Diarrhea Famotidine (Pepcid) 20 mg PO BID [facility] Last Admin: 04/01/18 17:10 Dose: 20 mg Fluoxetine HCl (Prozac) 40 mg PO DAILY [facility] Last Admin: 04/01/18 08:40 Dose: 40 mg Folic Acid (Folic Acid) 1 mg PO DAILY [facility] Last Admin: 04/01/18 08:39 Dose: 1 mg Gabapentin (Neurontin) 100 mg PO BID [facility] Last Admin: 04/01/18 17:10 Dose: 100 mg Lorazepam (Ativan) 0.5 mg PO Q6 PRN PRN Reason: Anixety/Agitation Stop: 04/09/18 16:55 Last Admin: 03/31/18 15:28 Dose: 0.5 mg Lorazepam (Ativan) 0.5 mg PO TID [facility] Last Admin: 04/01/18 17:10 Dose: 0.5 mg Magnesium Hydroxide (Milk Of Magnesia) 30 ml PO HS PRN PRN Reason: Constipation Multivitamins/Minerals (Therapeutic-M Tab) 1 tab PO DAILY [facility] Last Admin: 04/01/18 08:40 Dose: 1 tab Naproxen (Naproxen) 500 mg PO Q12 PRN PRN Reason: Arthritis Last Admin: 04/01/18 21:13 Dose: 500 mg Prazosin HCl (Minipress) 1 mg PO HS [facility] Last Admin: 04/01/18 22:06 Dose: 1 mg Thiamine HCl (Vitamin B1 Tab) 100 mg PO DAILY [facility] Last Admin: 04/01/18 08:40 Dose: 100 mg Trazodone HCl (Desyrel) 150 mg PO HS [facility] Last Admin: 04/01/18 22:06 Dose: 150 mg - Constitutional Appears: Well, Non-toxic, No Acute Distress - Head Exam Head Exam: ATRAUMATIC, NORMOCEPHALIC - Extremities Exam Additional comments: Patient wallness check Patient dressing is clean / dry and intact - Neurological Exam Neurological Exam: Alert, Awake, Oriented x3 - Psychiatric Exam Psychiatric exam: Normal Affect, Normal Mood Assessment and Plan - Assessment and Plan (Free Text) Assessment: 52 year old male with stable, non-infected left lateral malleolus wound Plan: Patient seen and evaluated at bedside Chart, labs and vital reviewed- Afebrile Head CT 03/21/18- no acute changes from previous CT Patient ulcer is stable and healed. dressing is done using DSD, and edison bandage. After contacting the top case assembler patient can get his dressing supply OTC (Angelia , 4X4 gauze and Edison bandage) Reviewed with the patient how to apply the dressing at home. Reviewed with the patient the instructions to change the dressing every other day. Patient instructed to keep the dressing clean, dry and intact. All patient questions and concerns answered to his satisfaction. Patient expressed verbal understanding. Podiatry plan: Patient stable from podiatric point of view, ready for discharge. Patient will be discharged today to his home. Patient will follow up after discharge at [facility]
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
[2018-04-02] MEDS: Naproxen 500 MG TAB PO PRN (08:33)
[2018-04-02] MEDS: Multivitamin With Minerals Tab PO SCH (08:34)
== END 2018-04-02 10:15 | disposition home or self-care (01) | DRG 426 ==
LOC: H.ERHOLD 15:59 → H.STEP 16:38
PROVIDERS: ADMIT Psychiatry & Neurology Psychiatry; ATTEND Psychiatry & Neurology Psychiatry
PROC: HZ56ZZZ Individual Psychotherapy for Substance Abuse Treatment, Psychoeducation (ICD-10-PCS; principal; 2018-03-26)
PROC: GZHZZZZ Group Psychotherapy (ICD-10-PCS; 2018-03-26)
DX: F32.9 Major depressive disorder, single episode, unspecified (principal); F10.231 Alcohol dependence with withdrawal delirium; L97.329 Non-pressure chronic ulcer of left ankle with unspecified severity; Y90.9 Presence of alcohol in blood, level not specified; F41.1 Generalized anxiety disorder; G47.9 Sleep disorder, unspecified; F43.10 Post-traumatic stress disorder, unspecified; G89.29 Other chronic pain